=== PATIENT | male | born 1940 | race Caucasian/White ===

== ENCOUNTER → 2016-11-25 | Outpatient (CLI) | payer BC ==
[~2016-11-25] MED LIST: ASPI81TA28 PO; CHOL2000 PO; COEN1CAP46; FINA5TAB PO; GLUC10007 PO; IBUP-1449 PO; MULT-884; OMEG10007 PO; PRAV20TA PO
[2016-11-25 17:14] LABS: BASO % 0.2 %; BASO ABS # 0.01 K/uL (0-0.2); COMPLETE YES; EOS % 2.1 %; HEMATOCRIT 40.7 % (42-52); LYMPH % 29.8 %; LYMPH ABS # 1.45 K/uL (1.2-3.4); MEAN CELL VOLUME 90.8 fL (80-100); MEAN CORPUSCULAR HEMOGLOBIN 32.1 pg (25-34); MEAN CORPUSCULAR HGB CONC 35.4 g/dl (32-36); MEAN PLATELET VOLUME 10.2 fL (7.4-10.4); MONO % 9.7 %; NEUT % 58.2 %; PLATELET COUNT 128 K/uL (130-400); RED BLOOD COUNT 4.48 M/uL (4.7-6.1); WHITE BLOOD COUNT 4.87 K/uL (4.8-10.8)
--- NOTE | 2016-12-02 10:47 | CODING QUERY MEDICAL NECESSITY ---
CQSUPPORTING DIAGNOSIS NEEDED A supporting diagnosis is required for the test/procedure performed on this patient in order for us to be reimbursed by the patient's insurance. Please provide a supporting diagnosis for the following test/procedure listed below next to the test name along with your signature. *If there is no additional diagnosis for this patient that would support the following test/procedure please document that below next to the test/procedure. Test(s)/Procedure(s) that require a supporting diagnosis: DOS 11/25/16 PROSTATE SPECIFIC TEST Provider Signature: Date: Thank you Manisha Zavala [facility] [employer] Once completed, please kindly fax back to [phone] For questions please call [phone]
== END | disposition home or self-care (01) ==
LOC: C.LABBC 15:02
PROVIDERS: ATTEND Internal Medicine Pulmonary Disease
DX: R53.83 Other fatigue (principal); N40.0 Benign prostatic hyperplasia without lower urinary tract symptoms

== ENCOUNTER → 2017-02-19 | Outpatient (CLI) | payer BC ==
[2017-02-19 11:09] LABS: BASO % 0.3 %; BASO ABS # 0.01 K/uL (0-0.2); COMPLETE YES; EOS % 6.1 %; HEMATOCRIT 43.9 % (42-52); LYMPH % 34.5 %; LYMPH ABS # 1.29 K/uL (1.2-3.4); MEAN CELL VOLUME 92.4 fL (80-100); MEAN CORPUSCULAR HEMOGLOBIN 32.4 pg (25-34); MEAN CORPUSCULAR HGB CONC 35.1 g/dl (32-36); MONO % 10.4 %; NEUT % 48.7 %; PLATELET COUNT 125 K/uL (130-400); RED BLOOD COUNT 4.75 M/uL (4.7-6.1); WHITE BLOOD COUNT 3.74 K/uL (4.8-10.8)
[2017-02-19 11:18] LABS: ALT/SGPT 44 U/L (12-78); BLOOD UREA NITROGEN 15 mg/dl (7-18); BUN/CREATININE RATIO 16.3 (10-20); CALCIUM 9.2 mg/dl (8.5-10.1); CARBON DIOXIDE 27 mmol/L (21-32); CHLORIDE 108 mmol/L (98-107); CHOLESTEROL 175 mg/dl (0-200); CREATININE 0.92 mg/dl (0.60-1.40); GLUCOSE 89 mg/dl (70-99); POTASSIUM 4.2 mmol/L (3.5-5.1); SODIUM 141 mmol/L (136-145)
[2017-02-19 11:29] LABS: ALB/GLOB RATIO 1.2 (0.9-2); ALKALINE PHOSPHATASE 51 U/L (45-117); AST/SGOT 36 U/L (15-37); CHOLESTEROL/HDL RATIO 3.6; HDL CHOLESTEROL 49 mg/dl; LDL CHOLESTEROL CALCULATED 114 mg/dl; TRIGLYCERIDES 62 mg/dl (0-150); VERY LOW DENSITY LIPOPROT CALC 12 mg/dl
[2017-02-19 12:39] LABS: ESTIMATED AVERAGE GLUCOSE 105 mg/dl; HA1C FLAG Normal (Normal)
--- NOTE | 2017-02-24 13:10 | CODING QUERY MEDICAL NECESSITY ---
SUPPORTING DIAGNOSIS NEEDED Dr. Mae, A supporting diagnosis is required for the test/procedure performed on this patient in order for us to be reimbursed by the patient's insurance. Please provide a supporting diagnosis for the following test/procedure listed below next to the test name along with your signature. *If there is no additional diagnosis for this patient that would support the following test/procedure please document that below next to the test/procedure. Test(s)/Procedure(s) that require a supporting diagnosis: * ([id number]) B12 VITAMIN LEVEL DIAGNOSIS: * [id number] GLYCATED HEMOGLOBIN DIAGNOSIS: DATE OF SERVICE: 02/19/17 Provider Signature: Date: Thank you [facility] Information [facility] Once completed, please kindly fax back to [phone] For questions please call [phone]
== END | disposition home or self-care (01) ==
LOC: C.LABBC 07:25
PROVIDERS: ATTEND Internal Medicine Pulmonary Disease
DX: E78.5 Hyperlipidemia, unspecified (principal); N40.0 Benign prostatic hyperplasia without lower urinary tract symptoms; R53.83 Other fatigue; D69.6 Thrombocytopenia, unspecified; R73.9 Hyperglycemia, unspecified

== ENCOUNTER → 2017-04-13 | Outpatient (CLI) | payer BC ==
--- NOTE | 2017-04-13 11:57 | DIAGNOSTIC IMAGING REPORT ---
ABDOMINAL ULTRASOUND COMPLETE HISTORY: Renal cyst.. COMPARISON: None. FINDINGS: Pancreas: Obscured by overlying bowel gas. Liver: There are a few hepatic cysts with the largest measuring 1.2 cm. Gallbladder: No gallbladder wall thickening. No gallstones. CBD: 5 mm. Kidneys: No hydronephrosis. No left renal cysts. An 8 mm right lower pole cyst. Spleen: Normal in size. Aorta: Normal in caliber. IVC: Patent. IMPRESSION: 1. A few small hepatic cysts. 2. An 8 mm right renal lower pole cyst. 3. Normal gallbladder. Electronically signed by: Bj Latham M.D. 04/13/2017 11:55 AM Dictated Date/Time: 04/13/2017 11:53 AM
== END | disposition home or self-care (01) ==
LOC: C.ULTR 10:40
PROVIDERS: ATTEND Internal Medicine Pulmonary Disease
DX: N28.1 Cyst of kidney, acquired (principal)

== ENCOUNTER → 2017-04-16 | Outpatient (CLI) | payer BC ==
[2017-04-16 14:15] LABS: BLOOD UREA NITROGEN 13 mg/dl (7-18); CREATININE 0.94 mg/dl (0.60-1.40)
== END | disposition home or self-care (01) ==
LOC: C.LABBC 10:05
PROVIDERS: ATTEND Physician Assistant
DX: M54.16 Radiculopathy, lumbar region (principal)

== ENCOUNTER → 2017-04-21 | Outpatient (CLI) | payer BC ==
[~2017-04-21] MED LIST changes: +GADAVIST IV PRN
--- NOTE | 2017-04-21 17:13 | DIAGNOSTIC IMAGING REPORT ---
LUMBAR SPINE COMBINATION HISTORY: Pain. Neuropathy. LUMBAR RADICULOPATHY TECHNIQUE: Multiplanar multisequence MRI of the lumbar spine was performed both before and after the intravenous administration of contrast. COMPARISON: 12/14/2015 FINDINGS: For the purpose of the report the L5-S1 disc space will be located on axial image 27 of 30. Interval posterior laminectomy and fusion from L3 through L5. Signal characteristics of the vertebral bodies remain unremarkable. Considerable degenerative disc changes noted throughout and are stable from the prior exam. No evidence for a compression deformity. L1-L2: Minimal broad-based disc bulge unchanged in the prior exam. L2-L3: Mild multifactorial narrowing of the spinal canal and right neuroforamina. Findings a slightly accentuated by minimal grade 1 anterolisthesis of L2 on L3. These findings are unchanged from the prior exam. Broad-based bulging disc again unchanged in the prior exam. L3-L4: Interval posterior laminectomy and fusion. Improved diameter of the spinal canal. Diminished bulging disc component. L4-L5: Persistent mild central disc herniation. Moderate impact anterior thecal sac. Improved diameter of the spinal canal posterior laminectomy and fusion. Mild persistent osteophytic narrowing right neuroforamina unchanged in the prior study. L5-S1: Persistent left central bulging disc. Moderate narrowing left neuroforamina unchanged. Improved diameter of the spinal canal posterior laminectomy and fusion. Small fluid pocket posterior to L3 throughout 5 and the associated spinal canal. Suggestive of a postprocedural seroma and measures 4.2 x 1.5 cm. IMPRESSION: 1. Interval laminectomy and fusion from L3 through L5. 2. Persistent bulging disc with moderate narrowing of several neural foramina stable to slightly improved overall from the prior exam. 3. Postprocedural seroma posterior to the thecal sac from L3 through L5 showing no significant impact upon admitting neural element. The above report was generated using voice recognition software. It may contain grammatical, syntax or spelling errors. Electronically signed by: Holden Wallace M.D. 04/21/2017 5:11 PM Dictated Date/Time: 04/21/2017 5:00 PM
== END | disposition home or self-care (01) ==
LOC: C.MRI 15:33
PROVIDERS: ATTEND Orthopaedic Surgery
DX: M51.16 Intervertebral disc disorders with radiculopathy, lumbar region (principal); Z98.1 Arthrodesis status; M99.73 Connective tissue and disc stenosis of intervertebral foramina of lumbar region

== ENCOUNTER → 2017-09-21 | Outpatient (CLI) | payer BC ==
[~2017-09-21] MED LIST changes: -GADAVIST IV PRN
== END | disposition home or self-care (01) ==
LOC: C.LABBC 14:17
PROVIDERS: ATTEND Internal Medicine Pulmonary Disease
DX: N40.1 Benign prostatic hyperplasia with lower urinary tract symptoms (principal)

== ENCOUNTER → 2017-10-20 | Outpatient (CLI) | payer BC ==
--- NOTE | 2017-10-20 10:38 | DIAGNOSTIC IMAGING REPORT ---
TWO VIEW CHEST CLINICAL HISTORY: Cough. FINDINGS: PA and lateral chest radiographs are compared to study dated 01/09/2016. The cardiomediastinal silhouette is unremarkable. There is atherosclerotic calcification of the thoracic aorta. Emphysematous change and chronic interstitial thickening are similar to previous. No airspace consolidation or pleural effusion is identified. Apical scarring is observed. There is no pneumothorax. The skeletal structures are osteopenic. The bony thorax appears intact. IMPRESSION: Emphysema with no acute cardiopulmonary abnormality. Electronically signed by: Eliseo Mcneill M.D. 10/20/2017 10:36 AM Dictated Date/Time: 10/20/2017 10:35 AM
== END | disposition home or self-care (01) ==
LOC: C.RAD1850 09:56
PROVIDERS: ATTEND Physician Assistant Medical
DX: J43.9 Emphysema, unspecified (principal)

== ENCOUNTER 2024-11-25 08:49 | Inpatient (IN) ==
--- NOTE | 2024-11-25 07:39 | History & Physical Bridge Note ---
Date of Service November 25, 2024 History & Physical Bridge Note I have examined the patient, reviewed the History & Physical and in the interval since the performance of the History & Physical I have noted the following changes of clinical significance: no changes noted
--- NOTE | 2024-11-25 07:39 | Pre Anesthesia Assessment ---
Date of Service November 25, 2024 Pre Sedation Assessment Cardiovascular + regular rate Respiratory + respiratory effort normal Pre-Sedation Airway Assessment Smoking Status: Never smoker Hx Sleep Apnea: No Hx Difficult Intubation: No Short, Thick Neck: No Thyromental Distance: < 3.5 Finger Breadths Oral Cavity: + Dental Abnormalities Mallampati Class: III ASA: ASA3 Procedure Planning Contraindications for Sedation: none Current Medications Reviewed: Yes Notes The planned sedation has been discussed with the patient. Informed Consent was obtained. I have identified the patient, determined the appropriateness of sedation and have assessed the patient immediately prior to the procedure. All medicine(s) and interventions are by my order.
--- NOTE | 2024-11-25 07:40 | Post Anesthesia Assessment ---
Date of Service November 25, 2024 Post Sedation Assessment Vital Signs Pulse Resp Pulse Ox O2 Del Method 11/25/24 09:05 63 14 98 Room Air Recovery Score Activity: Moves 4 extremities Respiration: Deep Breath/Cough Circulation: +/-20% PreAnes Value Consciousness: Fully Awake Oxygen Saturation: O2 needed for >90% Discharge Sedation Level of Care: Fast Track Phase II Post Sedation Plan On clinical assessment, the patient appears to have tolerated the sedation without complications. Patient is recovering as anticipated. Patient will continue to be monitored by nursing and may be discharged when sedation discharge criteria are met per below protocol. Upon Completions of procedure up to 15 minutes continue every 5 minute vital signs and the P.A.R. score; then discharge to a Phase I or Fast Track to Phase II per the following guidelines: * Discharge Patient to appropriate Phase II area if PAR is 8 or greater or return to pre- procedure baseline. The post - procedure orders will be as directed. * If PAR score is less than 8 or not return to pre-procedure baseline then patient will follow Phase I monitoring till PAR is reached for Phase II. The Phase I may be done in procedure room or may call to secure a Phase I area. * If naloxone or flumazenil are used for reversal, hold in Phase I for continued monitoring from when last reversal dose was given for a minimum of 60 minutes or longer pending the nurse and/or physician discretion of patient condition before discharge to Phase II. Please call the Sedation Physician to re-evaluate and complete post-note for discharge to Phase II area. Do NOT discharge from procedure sedation or Phase 1 until post- sedation evaluation note is complete by procedure /sedation MD Sedation Discharge Instructions to be given to the patient at discharge to home.
[2024-11-25] MEDS: LIDOCAINE 1% LOCAL 20 ML VIAL ONE ×2 (12:00→18:08)
[2024-11-25] MEDS: fentaNYL citrate PF 100 MCG/2 ML VIAL ONE ×3 (12:00→18:10)
[2024-11-25] MEDS: HEPARIN (PORCINE) 1000 UNIT/ML 10 ML (CATH LAB USE ONLY) ONE ×3 (12:00→18:11)
[2024-11-25] MEDS: NITROGLYCERIN/D5W 100MCG/ML 20ML SYR ONE ×2 (12:01→18:13)
[2024-11-25] MEDS: niCARdipine HCL INJ 2.5 MG/ML 10 ML AMP ONE (12:02)
[2024-11-25] MEDS: OPTIRAY 350 ONE ×2 (13:00→18:11)
[2024-11-25] MEDS: diphenhydrAMINE 50 MG/ML VIAL ONE (13:00)
[2024-11-25] MEDS: MIDAZOLAM HCL 5 MG/ML 1 ML VIAL ONE (13:02)
--- NOTE | 2024-11-25 13:46 | Endovascular Procedure Note ---
[facility] Endovascular Procedure Rpt Pre & Post Diagnosis Peripheral artery disease I identified the patient and participated in the time-out.: No Procedure Operation Date: 11/25/24 10:00 Actual Procedures p Angio Extremity Unilateral - Saw Sung MD Surgeon Saw Sung MD Manager [employer] Ashu Garza Estimated Blood Loss 35 Findings See Below Left lower extremity-- -MORTGAGE ANALYST, profunda widely patent -SFA--calcified distal 40% stenosis. -Popliteal--heavily calcified, diffuse disease up to 50% mid segment -BLANKA -- heavily calcified, occluded in mid segment. Minimal DPA reconstitution in foot. TPTdiffuse 80-90% disease -ANCHOR TACKER -- heavily calcified, 90% ostial disease just after bifurcation, diffuse 40-50% proximal disease. Distal vessel widely patent to the foot. -Peroneal -- occluded in proximal segment, reconstitutes in the midsegment. Gives off collaterals which had in direction of anterolateral lower leg above the ankle (near wound bed). DPAvery short area of reconstitution in hindfoot just below the ankle from collaterals from lateral plantar. DPA occluded and does not extend into the midfoot. Anesthesia Type RN Sedation Radiation Exposure (mGv) Radiation (mGy): 87 Contrast Contrast: 75 Complications none Disposition Disposition: [employer] Description of Procedure Angtegrade Left MORTGAGE ANALYST access with micropuncture needle under ultrasound guidance 5 Fr short sheath placed and initial angiography of SFA through sheath Over 0.35 glide advantage wire quick cross catheter navigated into distal popliteal. Below the knee angiography via quick cross catheter. Pullback of quick cross catheter revealed no significant gradient across popliteal stenosis. 6 Fr 45 cm destination sheath placed from left MORTGAGE ANALYST down to popliteal 0.14 command wire navigated across TPT/ANCHOR TACKER disease into distal ANCHOR TACKER IVUS catheter placed to ANCHOR TACKER. Pullback revealed diffuse early calcified disease in proximal ANCHOR TACKER/TPT. Concentric calcified disease noted in popliteal. Second command wire navigated across peroneal occlusion with the aid of angled 0.18 Navicross catheter, intravascular position confirmed via injection through catheter. Proximal to mid peroneal dilated with 2.0 balloon TPT/proximal ANCHOR TACKER dilated with 2.0 balloon Peroneal dilated with shockwave intravascular lithotripsy balloon (2.5, 160 pulses) TPT into ANCHOR TACKER further dilated with intravascular lithotripsy (shockwave, 3.0, 160 pulses). Left popliteal disease and proximal ANCHOR TACKER disease crossed with 0.14 command wire and OTW balloon. Angioplasty of TPT/proximal ANCHOR TACKER with 2.5 balloon. Proximal ANCHOR TACKER resistant to higher atmospheres Shockwave lithotripsy balloon used to treat resistant proximal ANCHOR TACKER segment (2.5, 160 pulses). Popliteal segment treated with shockwave lithotripsy 4.0 balloon (120 pulses). Popliteal further treated with Lutonix drug-eluting balloon (5.0 x 150 mm). IA vasodilators administered Repeat angiography revealed well-expanded peroneal artery Appeared to have nonflow limiting dissection in TPT and proximal ANCHOR TACKER Proximal ANCHOR TACKER dissection treated with 2.75 x 33 mm Xience CHAR, postdilated with stent balloon TPT dissection treated with 3.0 x 33 mm Xience CHAR, postdilated with stent balloon Post procedure good angiographic result, stents well-expanded with brisk two- vessel runoff to the foot and improved collateral flow from peroneal towards wound bed. Contrast used: 75 Moderate sedation: [id number] Access closure: LT MORTGAGE ANALYST mynx Summary: 1. Left lower extremity -- 40% distal SFA; 50% heavily calcified diffuse popliteal disease (no significant pullback gradient across popliteal); 85% TPT, 90% proximal ANCHOR TACKER stenosis. Occluded proximal peroneal reconstitutes to the ankle. BLANKA occluded without significant distal reconstitution. 2.. Successful left TPT/proximal ANCHOR TACKER angioplasty with intravascular lithotripsy (shockwave 3.0 balloon) and placement of 2 nonoverlapping drug-eluting stents (TPT 3.0 x 33, ANCHOR TACKER 2.75 x 33 mm Xience). 4. Successful angioplasty of LT peroneal occlusion with intravascular lithotripsy (Shockwave 2.5 balloon). Recommendations: Continue DAPT with ASA/Clopidogrel for for at least 3-months Consider addition of PAD dose Xarelto after 1 month Follow-up non-invasive vascular testing in 2 weeks. I attest to the content of the Intraoperative Record and any orders documented therein. Any exceptions are noted below. Vascular Charges Angiography/Venography Procedure 1: Angiography/Venography charges: 50226 Initial 3rd order or selective abd, pelvic, or LE branch Lower Extremity Interventions Procedure 1: Lower Extremity Intervention charges: 06157 Stent plcmt, tibial, peroneal art, UL, initial vessel Procedure 2: Lower Extremity Intervention charges: 64882 Stent Placement, tib/kenia artery, UL, each add'l vessel Additional Services Procedure 1: Additional Services Charges: 82795 Intravascular ultrasound; initial noncoronary vessel Procedure 2: Additional Services Charges: 48294 Ultrasound guidance - vascular access Procedure 3: Additional Services Charges: 16088 Moderate sedation initial 15 min Procedure 4: Additional Services Charges: 52713 Moderate sedation, each additional 15 min
[2024-11-25] MEDS: CLOPIDOGREL BISULFATE 300 MG TAB ONE ×2 (13:53→13:54)
--- NOTE | 2024-11-25 16:55 | Pre Anesthesia Assessment ---
Date of Service November 25, 2024 Pre Sedation Assessment Vital Signs Pulse Resp BP Pulse Ox O2 Del Method 11/25/24 15:30 61 14 96 Room Air 11/25/24 15:15 61 14 96 Room Air 11/25/24 14:30 61 14 169/95 H 96 Room Air 11/25/24 14:15 61 14 169/95 H 96 Room Air 11/25/24 14:00 59 L 14 147/91 H 96 Room Air 11/25/24 13:45 64 14 147/91 H 95 Room Air 11/25/24 13:30 63 14 153/103 H 88 L Room Air 11/25/24 09:05 63 14 98 Room Air Cardiovascular + tachycardic Respiratory + respiratory effort normal Pre-Sedation Airway Assessment Smoking Status: Never smoker Hx Sleep Apnea: No Hx Difficult Intubation: No Short, Thick Neck: No Thyromental Distance: > or= 3.5 Finger Breadths Oral Cavity: + WNL Mallampati Class: III ASA: ASA3 NPO Status Date of Last Intake of Fluids: 11/24/24 Time of Last Intake of Fluids: 19:00 Date of Last Intake of Solid Food: 11/24/24 Time of Last Intake of Solid Foods: 19:00 Procedure Planning Contraindications for Sedation: none Current Medications Reviewed: Yes Notes The planned sedation has been discussed with the patient. Informed Consent was obtained. I have identified the patient, determined the appropriateness of sedation and have assessed the patient immediately prior to the procedure. All medicine(s) and interventions are by my order.
--- NOTE | 2024-11-25 17:48 | Orthopedic Consultation ---
Date of Consultation November 25, 2024 Assessment & Plan (1) Compartment syndrome of left lower extremity: (2) PAD (peripheral artery disease): (3) Open wounds involving multiple regions of lower extremity: (4) CAD (coronary artery disease): Gonzalez Fong is an 84-year-old gentleman who presented to the hospital today for angiography with attempted stenting of posterior tibial artery for chronic nonhealing wounds. This was done by Dr. Sung. Apparently during the procedure, injury to the anterior tibial artery occurred and when the patient awoke in the recovery unit, he was found to have concerns for compartment syndrome. I was called this afternoon at approximately 1645 for evaluation. At that time, I recommended calling vascular surgery as the patient clearly had a proximal arterial lesion bleeding into the compartment causing his symptoms. I also immediately rushed to the hospital to evaluate the patient. Upon arriving in the hospital, the patient was already in the endovascular suite so I was unable to appropriately obtain a history from him. Per Dr. Sung, he did call and speak with the vascular attending on-call who recommended no vascular intervention, instead recommended coiling the anterior tibial artery and calling orthopedics to release his compartments. I did evaluate the patient briefly prior to the coiling procedure and on evaluation, the patient had very tense anterior and lateral compartments with soft posterior compartments on palpation. I did use a Kaden needle to evaluate his pressures as well. His preoperative diastolic blood pressure was 95 mmHg. Anterior compartment: 94 Lateral compartment: 90 Superficial posterior: 20 Deep posterior:15 Based on patient's clinical evaluation, his history including significant pain in his lower extremity, I do think that his diagnosis is consistent with compartment syndrome. I did call and discussed this with the patient's and I also obtained a phone consent from her for the anticipated procedure. Operative plan will be for fasciotomy of the anterior and lateral compartments followed by evaluation of the posterior compartments with possible 4 compartment fasciotomy if indicated. She is I did explain in great detail the risk of the procedure which include but are not limited to loss of life/limb, DVT, incomplete relief of pain, need for additional surgery, neurovascular damage, infection, wound healing complications. I did express to them that due to his significant lower extremity vascular disease, he is at a very high risk for amputation in the future. She understood this and all of her questions were answered to her satisfaction. We will proceed to the OR emergently at this point for fasciotomy with placement of wound VAC of the left lower extremity. History of Present Illness Reason for Consultation: Left lower extremity swelling Attending Physician: Saw Sung MD History of Present Illness Ajit Valdez is an 84-year-old gentleman who presented to the hospital today for angioplasty of his lower extremity for nonhealing wounds. He is a patient of Dr. Sung's. Past medical history includes dyslipidemia, coronary artery calcifications on CT scan (stress echo negative 03/2022), GERD, BPH. Also with a history of lumbar stenosis post prior back surgeries in 2015, 2020 most recently at [facility]. Previously seen by vascular medicine 02/2024 in the setting of longstanding claudication. Underwent endovascular invention 03/14/2024 with IVL and NOREEN to left popliteal as well as IVL to LT TPT/TRUCK WASHER. Recent arterial duplex 09/2024right YESSY 0.72, TBI 0.5 to; left YESSY 0.6, TBI 0.44 (56). Duplex showed occluded left BLANKA and patent popliteal/TRUCK WASHER arteries. Patient has seen wound clinic since 09/20/2024 with 6 weeks of left lower leg/ankle ulcers without preceding trauma. Left lateral ankle has essentially healed. Ulcer over left lower medial hernandez healing slow/plateaued with standard wound care, antibiotics. Recent vascular studies: Arterial duplex 02/2024: Right YESSY 1.22, TBI 0.7. Left YESSY 0.78, TBI 0.52. >75 to 99% left proximal to mid popliteal stenosis (PSV 658), 100% left distal BLANKA. Diminished peroneal/TRUCK WASHER waveforms. 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 Denies tobacco use Patient came into the electrophysiology suite today for angiography with attempted stenting of his posterior tibial and peroneal vessels for chronic lower extremity nonhealing wounds. The patient's procedure occurred earlier this afternoon sometime between noon and 1. Patient recovered in PACU thereafter and was complaining of significant pain in his lower extremity. Upon evaluation he did have significant swelling. I was called by Dr. Sung at approximately 445 with concerns for compartment syndrome. Immediately rushed to the hospital for evaluation. I also recommended calling vascular surgery due to the proximal nature of this injury. Dr. Sung did speak with the vascular on- call attending who noted no repair was indicated and to call orthopedics for compartment releases. On my initial evaluation, the patient is lying on the bed in the electrophysiology suite undergoing coiling of the anterior tibial artery. He is unable to participate in the history as he is currently under anesthetic. Allergies Allergy/AdvReac Type Severity Reaction Status Date / Time No Known Allergies Allergy Verified 11/25/24 09:16 Home Medications Medication Instructions Recorded Confirmed Type aspirin 81 mg tablet,delayed 81 mg PO QAM 03/17/19 11/25/24 History release (Adult Aspirin Regimen) cholecalciferol (vitamin D3) 50 2,000 units PO QAM 03/17/19 11/25/24 History mcg (2,000 unit) capsule coenzyme Q10 100 mg capsule 100 mg PO QAM 03/18/19 11/25/24 History glucosamine-chondroitin 250 mg-200 2 tab PO QAM 03/18/19 11/25/24 History mg tablet (Osteo Bi-Flex) omega-3 fatty acids 1,000 mg 1,000 mg PO TID 03/18/19 11/25/24 History capsule (Fish Oil Concentrate) multivitamin 1 tab PO QAM 07/11/20 11/25/24 History vitamin B complex (B 1 tab PO QAM 07/11/20 11/25/24 History Complex-Vitamin B12 tablet) Cholest Md 2 tab PO QPM 04/29/23 11/25/24 History finasteride 5 mg tablet 5 mg PO QPM #90 tabs 12/31/23 11/25/24 Rx atorvastatin 40 mg tablet (Lipitor) 40 mg PO QPM #90 tabs 04/21/24 11/25/24 Rx niacin 1 tab PO .3 times weekly 08/22/24 11/25/24 History acetaminophen 500 mg tablet 1,000 mg PO BID 09/20/24 11/25/24 History (Tylenol Extra Strength) Patient History Medical History History of COVID-2021, home test, not hopsitalized; "flu symptoms">resolved. Hepatic cyst Under observation Kyphosis Hx of Clostridium difficile infection Resolved Renal cyst Under observation Lumbar spinal stenosis BPH (benign prostatic hyperplasia) GERD (gastroesophageal reflux disease) Occasionally Hyperlipidemia Well controlled w/meds TMJ syndrome Hx; resolved Surgical History History of cystoscopy with urolift 04/01/22 Dr. 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 Family History Father Heart disease Grandmother Diabetes Mother Diabetes Brother Prostate cancer Other No family history of adverse response to anesthesia Social History Smoking Status: Never smoker Second Hand Exposure: No; Do You Dip or Chew Tobacco: No; Hx Alcohol Use: No Hx Substance Use: No Preferred Language: [place]er Communication Ability: Effective Pumping Station Supervisor Required: No Beliefs That Will Affect Care: None marital status: Current Living Situation: Spouse current occupational status: retired Feels Safe at Home: Yes Assistive Devices: None Review of Systems Review of Systems: Other HPI is unobtainable secondary to patient undergoing coiling at the time of my initial evaluation. Physical Exam Physical Exam: Prior to going into the endovascular suite, the patient's diastolic blood pressure was 95 mmHg. A Kaden needle was used to evaluate his compartment pressures and a are the following: Anterior compartment: 94 Lateral compartment: 90 Superficial posterior: 20 Deep posterior:15 on palpation his anterior and lateral compartments were quite tense, but his posterior compartments seemed quite soft and easily compressible Results & Data Vital Signs (Past 12 Hours) Vital Signs Pulse Resp BP Pulse Ox O2 Del Method 11/25/24 15:30 61 14 96 Room Air 11/25/24 15:15 61 14 96 Room Air 11/25/24 14:30 61 14 169/95 H 96 Room Air 11/25/24 14:15 61 14 169/95 H 96 Room Air 11/25/24 14:00 59 L 14 147/91 H 96 Room Air 11/25/24 13:45 64 14 147/91 H 95 Room Air 11/25/24 13:30 63 14 153/103 H 88 L Room Air 11/25/24 09:05 63 14 98 Room Air Diagnostic Findings Angiography results 11/25/24 "Description of Procedure Angtegrade Left HAND GLUER AND SLICER access with micropuncture needle under ultrasound guidance 6 Fr 20 cm sheath placed to mid SFA Left popliteal disease and proximal TRUCK WASHER disease crossed with 0.14 command wire a nd OTW balloon. Angioplasty of TPT/proximal TRUCK WASHER with 2.5 balloon. Proximal TRUCK WASHER resistant to higher atmospheres Shockwave lithotripsy balloon used to treat resistant proximal TRUCK WASHER segment (2.5, 160 pulses). Popliteal segment treated with shockwave lithotripsy 4.0 balloon (120 pulses). Popliteal further treated with Lutonix drug-eluting balloon (5.0 x 150 mm). Post procedure good angiographic result, no evidence of dissection with good single vessel run-off via TRUCK WASHER Contrast used: 60 Moderate sedation: [phone] Access closure: RT HAND GLUER AND SLICER mynx; LT HAND GLUER AND SLICER mynx Summary: 1. Left lower extremity -- 40% distal SFA; 90% heavily calcified diffuse popliteal disease; 95% TPT/proximal TRUCK WASHER stenosis. Occluded proximal peroneal reconstitutes to the ankle. BLANKA occluded. 3. Successful angioplasty of LT popliteal artery with intravascular lithotripsy and drug-eluting balloon (5.0 x 150 Lutonix) via LT HAND GLUER AND SLICER antegrade approach. 4. Successful angioplasty of LT TPT/Proximal TRUCK WASHER with intravascular lithotripsy (Shockwave 2.5 balloon). "
[2024-11-25] MEDS ORDERED: ONDANSETRON INJ 2 MG/ML 2 ML VIAL ONE (18:11)
[2024-11-25] MEDS ORDERED: PROPOFOL IV EMULSION 10 MG/ML 20 ML VIAL IV ONE (18:11)
[2024-11-25] MEDS ORDERED: SUCCINYLCHOLINE CHLORIDE 20 MG/ML 10 ML VIAL IV ONE (18:11)
[2024-11-25] MEDS ORDERED: LIDOCAINE 2% 2 ML VIAL/AMP(20MG/ML) INFIL ONE ×3 (18:11→18:16)
[2024-11-25] MEDS ORDERED: ROCURONIUM BROMIDE 10 MG/ML 5 ML VIAL IV ONE (18:11)
[2024-11-25] MEDS: MIDAZOLAM HCL 1 MG/ML 2ML VIAL ONE ×2 (18:12→18:13)
[2024-11-25] MEDS: niCARdipine 2,000 MCG/20 ML SYR ONE (18:12)
--- NOTE | 2024-11-25 18:15 | Post Anesthesia Assessment ---
Date of Service November 25, 2024 Post Sedation Assessment Vital Signs Pulse Resp BP Pulse Ox O2 Del Method 11/25/24 15:30 61 14 96 Room Air 11/25/24 15:15 61 14 96 Room Air 11/25/24 14:30 61 14 169/95 H 96 Room Air 11/25/24 14:15 61 14 169/95 H 96 Room Air 11/25/24 14:00 59 L 14 147/91 H 96 Room Air 11/25/24 13:45 64 14 147/91 H 95 Room Air 11/25/24 13:30 63 14 153/103 H 88 L Room Air 11/25/24 09:05 63 14 98 Room Air Recovery Score Activity: Moves 4 extremities Respiration: Deep Breath/Cough Circulation: +/-20% PreAnes Value Consciousness: Fully Awake Oxygen Saturation: > 92% On Room Air Post Anesthesia Score: 10 Discharge Sedation Level of Care: Fast Track Phase II Post Sedation Plan On clinical assessment, the patient appears to have tolerated the sedation without complications. Patient is recovering as anticipated. Patient will continue to be monitored by nursing and may be discharged when sedation discharge criteria are met per below protocol. Upon Completions of procedure up to 15 minutes continue every 5 minute vital signs and the P.A.R. score; then discharge to a Phase I or Fast Track to Phase II per the following guidelines: * Discharge Patient to appropriate Phase II area if PAR is 8 or greater or return to pre- procedure baseline. The post - procedure orders will be as directed. * If PAR score is less than 8 or not return to pre-procedure baseline then patient will follow Phase I monitoring till PAR is reached for Phase II. The Phase I may be done in procedure room or may call to secure a Phase I area. * If naloxone or flumazenil are used for reversal, hold in Phase I for continued monitoring from when last reversal dose was given for a minimum of 60 minutes or longer pending the nurse and/or physician discretion of patient condition before discharge to Phase II. Please call the Sedation Physician to re-evaluate and complete post-note for discharge to Phase II area. Do NOT discharge from procedure sedation or Phase 1 until post- sedation evaluation note is complete by procedure /sedation MD Sedation Discharge Instructions to be given to the patient at discharge to home.
--- NOTE | 2024-11-25 18:39 | Anesthesiology Consultation ---
Date of Service November 25, 2024 Assessment & Plan Chart Review Chart Review: Acceptable Risk for Surgery and Patient NOT seen in Pre Admission Testing Consults Requested medical ASA [id number] Proposed Anesthesia Anesthesia Type: General Risk / Benefits Reviewed With: PT / POA / Parent / Guardian, Accepts Plan and Informed Consent Obtained Additional Comments: Discussed with and consented patient's given that patient was recently sedated for procedures x2. For most recent procedure, had 3 mg versed and 100 mcg fentanyl. History Surgery Operation Date: 11/25/24 10:00 Proposed Procedures p Left Lower Extremity Angiogram - Saw Sung MD Operation Date: 11/25/24 16:00 Proposed Procedures p Cardiac Cath Procedure - Saw Sung MD Operation Date: 11/25/24 19:00 Proposed Procedures p Fasciotomy(Left) - Gregorio Vo DO Height/Weight Height: 6 ft 4 in Weight: 85 kg Allergies Allergy/AdvReac Type Severity Reaction Status Date / Time No Known Allergies Allergy Verified 11/25/24 09:16 Medications Home Medications Medication Instructions Recorded Confirmed Last Taken aspirin 81 mg tablet,delayed 81 mg PO QAM 03/17/19 11/25/24 11/25/24 release (Adult Aspirin Regimen) cholecalciferol (vitamin D3) 50 2,000 units PO QAM 03/17/19 11/25/24 05/06/23 mcg (2,000 unit) capsule coenzyme Q10 100 mg capsule 100 mg PO QAM 03/18/19 11/25/24 05/05/23 glucosamine-chondroitin 250 mg-200 2 tab PO QAM 03/18/19 11/25/24 05/05/23 mg tablet (Osteo Bi-Flex) omega-3 fatty acids 1,000 mg 1,000 mg PO TID 03/18/19 11/25/24 03/31/22 08:00 capsule (Fish Oil Concentrate) multivitamin 1 tab PO QAM 07/11/20 11/25/24 03/31/22 08:00 vitamin B complex (B 1 tab PO QAM 07/11/20 11/25/24 03/31/22 08:00 Complex-Vitamin B12 tablet) Cholest Md 2 tab PO QPM 04/29/23 11/25/24 05/05/23 finasteride 5 mg tablet 5 mg PO QPM #90 tabs 12/31/23 11/25/24 Unknown atorvastatin 40 mg tablet (Lipitor) 40 mg PO QPM #90 tabs 04/21/24 11/25/24 Unknown niacin 1 tab PO .3 times weekly 08/22/24 11/25/24 Unknown acetaminophen 500 mg tablet 1,000 mg PO BID 09/20/24 11/25/24 Unknown (Tylenol Extra Strength) NPO Date Last Intake of Fluids: 11/24/24 Date Last Intake of Solids: 11/24/24 Past Medical History Medical History History of COVID-19 2021, home test, not hopsitalized; "flu symptoms">resolved. Hepatic cyst Under observation Kyphosis Hx of Clostridium difficile infection Resolved Renal cyst Under observation Lumbar spinal stenosis BPH (benign prostatic hyperplasia) GERD (gastroesophageal reflux disease) Occasionally Hyperlipidemia Well controlled w/meds TMJ syndrome Hx; resolved Exercise / Class Metabolic Activity III < 4 Walking/Shop/Light housework Past Family History Family History Father Heart disease Grandmother Diabetes Mother Diabetes Brother Prostate cancer Other No family history of adverse response to anesthesia Past Surgical History Surgical History History of cystoscopy with urolift 04/01/22 Dr. 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 Past Anesthesia History No Hx of Anesthesia Complications and No Family Hx of Anesthesia Complications History of PONV No Hx of PONV and No Hx of Motion Sickness Social History Smoking Status: Never smoker Do You Dip or Chew Tobacco: No Hx Alcohol Use: No Alcohol type: beer and wine alcohol intake frequency: holidays/special occasions only Hx Substance Use: No substance use type: does not use Review of Systems ROS Unobtainable: All systems reviewed & are unremarkable except as noted in HPI & below Physical Exam Vital Signs Last Vital Signs Pulse 61 11/25/24 15:30 Resp 14 11/25/24 15:30 BP 169/95 H 11/25/24 14:30 Pulse Ox 96 11/25/24 15:30 O2 Del Method Room Air 11/25/24 15:30 ENMT Mouth: no TMJ abnormality Thyromental Distance: > or= 3.5 Finger Breadths Mallampati Class: II Neck normal visual inspection and trachea midline; neck extension not limited Respiratory normal respiratory effort Auscultation: lungs clear to auscultation bilaterally Cardiovascular Rate/Rhythm: regular rate and regular rhythm Heart Sounds: no murmur Musculoskeletal Spine: normal cervical ROM Extremities: full ROM of extremities Neurologic moves all extremities Psychiatric Orientation: alert and oriented x 3 Testing Stress Test Date: 03/27/22 Findings: + WNL Resting EF: 69
[2024-11-25] MEDS ORDERED: fentaNYL citrate PF 100 MCG/2 ML VIAL ONE (18:48)
[2024-11-25] MEDS ORDERED: ePHEDrine sulfate 50 MG/ML AMP IV PRN (18:51)
[2024-11-25] MEDS ORDERED: fentaNYL citrate PF 100 MCG/2 ML VIAL IV PRN (18:51)
[2024-11-25] MEDS ORDERED: ONDANSETRON INJ 2 MG/ML 2 ML VIAL IV PRN ×2 (18:51→20:37)
[2024-11-25] MEDS ORDERED: ATROPINE SULFATE 0.1 MG/ML 10ML SYR IV PRN (18:51)
[2024-11-25 18:53] LABS: Hematocrit (blood only) 45.5 % (42.0-52.0); Hemoglobin 15.6 g/dl (14.0-18.0); Mean Corpuscular Hemoglobin 32.4 pg (25.0-34.0); Mean Corpuscular Hgb Conc 34.3 g/dL (32.0-36.0); Mean Corpuscular Volume 94.6 fL (80.0-100.0); Mean Platelet Volume 9.8 fL (9.4-12.4); Platelet Count 111 K/uL (130-400); RDW Coefficient of Variation 12.3 % (11.5-14.5); RDW Standard Deviation 42.5 fL (36.4-46.3); Red Blood Count 4.81 M/uL (4.70-6.10); White Blood Count 7.24 K/ul (4.8-10.8)
[2024-11-25] MEDS ORDERED: ceFAZolin 330 MG/ML 1 GM VIAL ONE (18:53)
[2024-11-25 19:05] LABS: BUN Creatinine Ratio 28.4 (10-20); Calcium 9.1 mg/dl (8.6-10.3); Creatinine Clr Calc Pharmacy 83.1 ml/min
[2024-11-25] MEDS ORDERED: PHENYLEPHRINE 100MCG/ML 5ML SYR ONE (19:06)
[2024-11-25] MEDS: ceFAZolin 2000MG 2,000 MG/15 ML SYR IV ONE (19:08)
[2024-11-25] MEDS ORDERED: ePHEDrine sulfate 50 MG/ML AMP ONE (19:10)
[2024-11-25 19:18] LABS: INR 1.1 (0.9-1.1); Partial Thromboplastin Ratio 1.1; Partial Thromboplastin Time 29 Seconds (21-31); Prothrombin Time 11.4 Seconds (9.0-12.0)
--- NOTE | 2024-11-25 20:41 | Post Operative Brief Note ---
Immediate Post Op Note Date of Surgery November 25, 2024 Pre & Post Diagnosis Operation Date: 11/25/24 19:00 Pre-Op Diagnosis: Compartment syndrome of left lower extremity, Peripheral Artery Disease, Open wounds involving multiple regions of lower extremity, Coronary Artery Disease Post-Op Diagnosis: Compartment syndrome of left lower extremity, Peripheral Artery Disease, Open wounds involving multiple regions of lower extremity, Coronary Artery Disease I identified the patient and participated in the time-out.: Yes Procedure Operation Date: 11/25/24 19:00 Actual Procedures p Fasciotomy with Placement of Wound VAC of the Left Lower Extremity(Left) - Gregorio Vo DO 1. 4 compartment fasciotomy left lower extremity 2. Application wound VAC left lower extremity Surgeon Gregorio Vo DO Metal Engraver Marci De La Torre PA-C Estimated Blood Loss 100 Findings Consistent with Post-Op Diagnosis severely swollen anterior and lateral compartments with impending compartment syndrome of deep posterior and superficial posterior compartments. Once released, good muscle viability noted in deep posterior, superficial posterior, lateral compartments with questionable muscle viability anterior compartment. Anesthesia Type General Complications None Disposition Disposition: Surgical ICU Overlapping Procedure I was present for: the critical portions of procedure. (the entire surgery)
--- NOTE | 2024-11-25 20:43 | Critical Care Consultation ---
Date of Consultation November 25, 2024 Assessment & Plan (1) Compartment syndrome of left lower extremity: (2) PAD (peripheral artery disease): Plan Reason Critically Ill: 84 YOM s/p angio with IVL and NOREEN angioplasty to Left leg, injury/bleeding to BLANKA requiring coiling as well as 4 compartment fasciotomy secondary to compartment syndrome. Patient to ICU for continued NV/CV monitoring of LLE and hemodynamic monitoring. Neuro - Acute pain CAM ICU: NEGATIVE - Pain controll teired multimodal- ordered by orthopaedics service- tylenol scheduled, tiered oxycodone- Will add IV morphine if refractory to oral medications as well as rescue narcan ordered. - NV checks follow s/p fasciotomy Cardiac - Compartment syndrome, PAD, - s/p fasciotomy 4 compartments- follow pain, temperature, sensation, and drain output - drain management per orthopaedics- plan for return possibly Thursday11/27/24 - Antiplatelet medications on hold currently- resume when appropriate from cardiology and orthopaedics persepctive - follow CV and NV exams as above. Respiratory - No acute needs - wean oxygen - ETCO2 overnight GI - No acute needs - advance diet as tolerated RENAL/LYTES - No acute needs - No acute needs ENDO - No acute needs - ICU hyper/hypoglycemic protocol HEME - HX of mild thromobyctyopenia - EBL minimal - follow HGB/HCT - transfuse if HGB <7.0, actively bleeding or symptomatic ID - No concerns at this time for acute infective process - ANCEF post surgical doses as directed by Orthopaedics LINES/IV ACCESS - PIV, JEAN drain left leg Continue use of these lines DVT PROPHYLAXIS - SCDS, chemoprophylaxis once heoststasis is ensured DISPO: ICU overnight follow NV/CV status of left leg I have personally spent 40 minutes of care time in the direct management of this patient. This is a life/limb threatening event. This includes time spent evaluating patient, direct bedside care, chart review, placing orders, interpretation of diagnostic studies, discussion with consultants, patient, and family members, as well as other required patient management activities. This time is exclusive of all separately billable procedures, and teaching time and separate from and in addition to any other critical care service time. Thank you for allowing us to participate in the care of this patient. Please refer to my attending physician's documentation for any further recommendations. History of Present Illness Reason for Consultation: s/p compartment release for compartment syndrome Requesting Physician: Saw Sung MD Attending Physician: Saw Sung MD History of Present Illness 84 YOM with history of PAD, delayed wound healing to left foot, CAD, HLD, lumbar stenosis with LLE radiculopathy. Patient underwent angio today identifying multiple vessel PAD- he had a successful angioplasty with IVL and NOREEN of the LT popliteal artery and Successful angioplasty of the LT TPT and proximal DIRECTOR SURFACE TRANSPORTATION with IVL. During recovery phase, patient was noted to have increased pain to his left leg/foot and some increased swelling. He was found to have injury to his BLANKA on repeat angio, this was coiled and orthopaedic surgery followed up with patient for evaluation of compartment syndrome. He was noted to have tense compartments and was urgently taken to the operating room, where he had release of 4 compartments. He was then brought to the ICU for continued hemodynamic monitoring, NV/CV evaluations of his left foot. Patient was extubated and awake on NC. He is able to move his left foot and lower leg, he is with decreased sensation to his left toes and medial aspect of his left foot. Patient reports that this may also be consistent with his chronic neuropathy/radiculopathy. He is currently on no infusions or vasoactive medications. Case discussed with: Cardiology/endovascular- DR. Sung, Anesthesia- Dr. Harrison, Orthopaedics- Dr. Vo CODE: FULL Allergies Allergy/AdvReac Type Severity Reaction Status Date / Time No Known Allergies Allergy Verified 11/25/24 09:16 Home Medications Medication Instructions Recorded Confirmed Type aspirin 81 mg tablet,delayed 81 mg PO QAM 03/17/19 11/25/24 History release (Adult Aspirin Regimen) cholecalciferol (vitamin D3) 50 2,000 units PO QAM 03/17/19 11/25/24 History mcg (2,000 unit) capsule coenzyme Q10 100 mg capsule 100 mg PO QAM 03/18/19 11/25/24 History glucosamine-chondroitin 250 mg-200 2 tab PO QAM 03/18/19 11/25/24 History mg tablet (Osteo Bi-Flex) omega-3 fatty acids 1,000 mg 1,000 mg PO TID 03/18/19 11/25/24 History capsule (Fish Oil Concentrate) multivitamin 1 tab PO QAM 07/11/11/25/24 History vitamin B complex (B 1 tab PO QAM 07/11/20 11/25/24 History Complex-Vitamin B12 tablet) Cholest Md 2 tab PO QPM 04/29/23 11/25/24 History finasteride 5 mg tablet 5 mg PO QPM #90 tabs 12/31/23 11/25/24 Rx atorvastatin 40 mg tablet (Lipitor) 40 mg PO QPM #90 tabs 04/21/24 11/25/24 Rx niacin 1 tab PO .3 times weekly 08/22/24 11/25/24 History acetaminophen 500 mg tablet 1,000 mg PO BID 09/20/24 11/25/24 History (Tylenol Extra Strength) Patient History Medical History History of COVID-19 2021, home test, not hopsitalized; "flu symptoms">resolved. Hepatic cyst Under observation Kyphosis Hx of Clostridium difficile infection Resolved Renal cyst Under observation Lumbar spinal stenosis BPH (benign prostatic hyperplasia) GERD (gastroesophageal reflux disease) Occasionally Hyperlipidemia Well controlled w/meds TMJ syndrome Hx; resolved Surgical History History of cystoscopy with urolift 04/01/22 Dr. 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 Family History Father Heart disease Grandmother Diabetes Mother Diabetes Brother Prostate cancer Other No family history of adverse response to anesthesia Social History Smoking Status: Never smoker Second Hand Exposure: No; Do You Dip or Chew Tobacco: No; Hx Alcohol Use: No Hx Substance Use: No Preferred Language: Kazakh Communication Ability: Effective Agricultural Sales Representative Required: No Beliefs That Will Affect Care: None marital status: Current Living Situation: Spouse current occupational status: retired Other Information That Helps Us Care for You: No Feels Safe at Home: Yes Assistive Devices: None Review of Systems Review of Systems: REVIEW OF SYSTEMS: Constitutional: No fever, sweats or chills Eyes: No diplopia, no worsening or blurred vision ENT: normal hearing, no trouble swallowing Respiratory: No cough, sputum, dyspnea at rest or on exertion Cardiovascular: (+) pain left leg, poor healing ulcers, No chest pain, tightness or palpitations Abdomen: No pain, nausea, vomiting, diarrhea or constipation Musculoskeletal: (+) chronic back pain, left lower leg neuropathy, No joint pain, calf pain, swelling Neurologic: (+) as above, Psychiatric: No anxiety or depression Physical Exam Physical Exam: PHYSICAL EXAM: General: awake, alert, no apparent distress Head: Normocephalic, atraumatic ENT: PERRL, EOMI, no pharyngeal exudate, mucous membranes dry Neuro: AAO x 3, speech clear and appropriate, strength intact bilaterally 5/5, sensation intact and equal all extremities and dermatomes, no pronator drift Chest: equal rise and fall of the chest, no accessory muscle use, no heaves or thrills, Clear to auscultation, on room air, Cardiac: Regular rate and rhythm, telemetry reviewed, skin warm dry, Left foot warm, left toes cool but with good color, pulses palpable, left calf JEAN drain, and left leg wrapped with memo bandage no drainage or strike through. GI: NABS x 4 quadrants, soft, nontender to palpation, no rebound, guarding or tenderness : Spontaneously voiding, no pain, no CVA tenderness, Extremities: Normal inspection, no peripheral edema or erythema, calfs nontender to palpation Psych: Normal mood and affect Skin: no rash or erythema Results & Data Results & Data Vital Signs (Past 12 Hours) Vital Signs Pulse Resp BP Pulse Ox O2 Del Method 11/25/24 15:30 61 14 96 Room Air 11/25/24 15:15 61 14 96 Room Air 11/25/24 14:30 61 14 169/95 H 96 Room Air 11/25/24 14:15 61 14 169/95 H 96 Room Air 11/25/24 14:00 59 L 14 147/91 H 96 Room Air 11/25/24 13:45 64 14 147/91 H 95 Room Air 11/25/24 13:30 63 14 153/103 H 88 L Room Air 11/25/24 09:05 63 14 98 Room Air Laboratory Results Abnormal lab results 11/25/24 11/25/24 11/25/24 Range/Units 11:53 12:19 12:51 Plt Count (130-400) K/uL Activ Coag Time Kaolin 187 H 233 H 233 H (94-140) SECONDS BUN/Creatinine Ratio (10-20) Glucose (70-99(Fasting)) mg/dl 11/25/24 Range/Units 18:23 Plt Count 111 L (130-400) K/uL Activ Coag Time Kaolin (94-140) SECONDS BUN/Creatinine Ratio 28.4 H (10-20) Glucose 100 H (70-99(Fasting)) mg/dl Coding Level of Care Code 42566 INT INP/OBS CARE MIN Diagnoses Compartment syndrome of left lower extremity T79.A22A PAD (peripheral artery disease) I73.9
--- NOTE | 2024-11-25 20:43 | Operative Report ---
Post Operative Report Pre & Post Diagnosis Operation Date: 11/25/24 19:00 Pre-Op Diagnosis: Compartment syndrome of left lower extremity, Peripheral Artery Disease, Open wounds involving multiple regions of lower extremity, Coronary Artery Disease Post-Op Diagnosis: Compartment syndrome of left lower extremity, Peripheral Artery Disease, Open wounds involving multiple regions of lower extremity, Coronary Artery Disease I identified the patient and participated in the time-out.: Yes Procedure Operation Date: 11/25/24 19:00 Actual Procedures p Fasciotomy with Placement of Wound VAC of the Left Lower Extremity(Left) - Gregorio Vo DO 1. 4 compartment fasciotomy left lower extremity 2. Application of wound VAC, left lower extremity Surgeon Gregorio Vo DO Director Of Safety Marci De La Torre PA-C Estimated Blood Loss 100 Findings Consistent with Post-Op Diagnosis 1. Severely tense anterior and lateral compartments 2. Impending compartment syndrom deep posterior and superficial posterior cash rtments 3. Viable muscle tissue with good contractility in the lateral, deep posterior, superficial posterior compartments. Some areas of concern with regards to muscle viability in the anterior compartment. Fluids see anesthesia record Specimens none Indications Ajit is an 84-year-old gentleman who presented to the hospital today for angiography with attempted stenting of posterior tibial artery for chronic nonhealing wounds. This was done by Dr. Sung. Apparently during the procedure, injury to the anterior tibial artery occurred and when the patient awoke in the recovery unit, he was found to have concerns for compartment syndrome. I was called this afternoon at approximately 1645 for evaluation. At that time, I recommended calling vascular surgery as the patient clearly had a proximal arterial lesion bleeding into the compartment causing his symptoms. I also immediately rushed to the hospital to evaluate the patient. Upon arriving in the hospital, the patient was already in the endovascular suite so I was unable to appropriately obtain a history from him. Per Dr. Sung, he did call and speak with the vascular attending on-call who recommended no vascular intervention, instead recommended coiling the anterior tibial artery and calling orthopedics to release his compartments. I did evaluate the patient briefly prior to the coiling procedure and on evaluation, the patient had very tense anterior and lateral compartments with soft posterior compartments on palpation. I did use a Macon needle to evaluate his pressures as well. His preoperative diastolic blood pressure was 95 mmHg. Anterior compartment: 94 Lateral compartment: 90 Superficial posterior: 20 Deep posterior:15 Based on patient's clinical evaluation, his history including significant pain in his lower extremity, I do think that his diagnosis is consistent with compartment syndrome. I did call and discussed this with the patient's and I also obtained a phone consent from her for the anticipated procedure. Operative plan will be for fasciotomy of the anterior and lateral compartments followed by evaluation of the posterior compartments with possible 4 compartment fasciotomy if indicated. I did explain in great detail the risk of the procedure which include but are not limited to loss of life/limb, DVT, incomplete relief of pain, need for additional surgery, neurovascular damage, infection, wound healing complications. I did express to them that due to his significant lower extremity vascular disease, he is at a very high risk for amputation in the future. She understood this and all of her questions were answered to her satisfaction. We will proceed to the OR emergently at this point for fasciotomy with placement of wound VAC of the left lower extremity. Description of Procedure after informed consent was obtained, the patient was correctly identified in the preoperative holding suite, the operative site was marked with the surgeon's initials, the date of surgery, and the word yes. The patient was then taken to the operative suite. The department of anesthesia administered General anesthesia The patient was transferred from the [facility] to the operative table. All bony prominences were well-padded. Briefing and timeout was performed. All implants were available and sterile at the time. BRIEFING AND DEBRIEFING: Pre and post operative briefing and debriefing was performed. Introductions were made, goals of the procedure were discussed, questions and concerns were addressed. The operative site markings were identified and appropriate. A time [id number] was performed, the patient's correct identity was confirmed and the correct operative sites were identified. The patients pre-operative antibiotic dosing and administration was confirmed along with other SCIP measures. The team was polled at the completion of the surgery and all team members were in agreement that the procedure was without complication, the counts are correct, the wound class was identified and suggestions for improvement were shared. patient was transferred in supine fashion from the hospital bed to the operative table. A bump was placed under the ipsilateral hip. The patient's contralateral extremity and his arms were well-padded and secured in place. The leg was placed onto a bone foam ramp. The left lower extremity was prepped and draped in standard sterile fashion using Betadine scrub and paint. We began by marking out the anatomy of the fibula from the distal tip to the fibular head. We planned for our incision just on the anterior border of this in line with the fibula the entire length of the lower extremity. We ended up making a 20 cm incision. We dissected sharply through skin and then bluntly through subcutaneous tissue being sure to identify and protect the superficial peroneal nerve in the distal aspect of the incision in the anterior flap. We encountered the fascia and proximally, we teed the fascia over the intermuscular septum and then used curved James scissors to release the anterior compartment using a push and slide technique in both cephalad and caudal directions. We did this carefully to avoid neurovascular structures. Upon release of the fascia covering the anterior and lateral compartments we noted extrusion of the muscle and we tested its viability. In the lateral compartment all musculature was contractile, Red, and had appropriate consistency. In the anterior compartment, the muscle was still red in color, and about 75% was contractile using the electrocautery. None of this was debrided at this time because by the end of the procedure more of the muscle appeared beefy and red. We will wait for subsequent debridements to determine how much if any muscle needs to be de brided. We then turned our attention towards the posterior compartments. On manual palpation we compared the operative leg to the contralateral leg and felt as if the swelling had increased even since earlier evaluation, so we made the decision to prophylactically release the impending compartment syndrome in the posterior compartments. we then dissected within the lateral compartment posteriorly until we encountered the fascia overlying the superficial posterior compartment. This was released using the curved James scissors both cephalad and caudally. We then finger dissected on the posterior aspect of the fibula until we encountered the interosseous membrane and the posterior aspect of the tibia. Using the Marinelli elevator, a rent was made in the fascia overlying the FHL muscle belly and then blunt dissection using a finger in a cephalad and caudal direction then released the deep posterior compartment. The musculature in both the deep and superficial posterior compartments were visualized and appeared healthy and viable at this time. We then thoroughly irrigated the wound copiously with greater than 1 L of sterile saline. We would then plan to apply our wound VAC dressing. We first placed lap sponges in the wound and using a picture window technique applied the clear adherent dressings onto the skin. We cut the lap sponges out and then placed Adaptic over the exposed muscle. We then custom contoured the large black wound VAC sponge to fit the incision nicely. We would then use to Vesseloops and perform a Marrufo ladder tensioning device over top of the wound VAC making sure that all knots were on the wound VAC not on the skin edges. we secured the wound VAC and the Marrufo ladder tensioning device with the 1/2 clear dressings, applied the Juli pad and tested the suction. This was adequate and the seal was good. We set the wound VAC to 125 mmHg low continuous suction. The patient tolerated this procedure well and was transferred to the PACU in st able condition. Prior to transportation to PACU, all counts were correct and a briefing was performed at the end of the case. I was present for the entire procedure. Due to the complex nature of the procedure, the entire surgery was performed with the operational assistance of Marci De La Torre PA-C. The assistant manager airside operations, under direct supervision, was involved in the performance of all aspects of the surgical procedure including hemostasis, tissue retraction, instrument management, patient positioning and wound closure. Plan: Weight bearing status: nonweightbearing left lower extremity Wound care: keep wound VAC in place at 2125 mmHg low continuous Range of motion: as tolerated of knee and ankle VTE Prophylaxis: per cardiology/vascular Antibiotics: Ancef 2 g every 8 hours Pain Control: Multimodal Discharge Plan: pending Follow Up: pending clinical course I attest to the content of the Intraoperative Record and any orders documented therein. Any exceptions are noted below.
[2024-11-25] MEDS ORDERED: ceFAZolin 2000MG 2,000 MG/15 ML SYR IV SCH (21:00)
--- NOTE | 2024-11-25 21:27 | Anesthesiology Progress Note ---
Date of Service November 25, 2024 Anesthesia Post Procedure Vital Signs Vital Signs: Temp Pulse Resp BP Pulse Ox O2 Del Method O2 Flow Rate 11/25/24 21:01 36.6 C 83 24 140/81 99 Nasal Cannula 4 11/25/24 20:56 81 12 165/78 H 99 Oxymask 5 11/25/24 20:51 78 13 152/72 H 100 Oxymask 5 11/25/24 20:36 36.6 C 78 16 171/79 H 100 Oxymask 8 11/25/24 15:30 61 14 96 Room Air 11/25/24 15:15 61 14 96 Room Air 11/25/24 14:30 61 14 169/95 H 96 Room Air 11/25/24 14:15 61 14 169/95 H 96 Room Air 11/25/24 14:00 59 L 14 147/91 H 96 Room Air 11/25/24 13:45 64 14 147/91 H 95 Room Air 11/25/24 13:30 63 14 153/103 H 88 L Room Air 11/25/24 09:05 63 14 98 Room Air Transfer of Care Handoff Completed per policy Notes Mental Status: alert / awake / arousable Patient Amnestic to Procedure: Yes Nausea / Vomiting: adequately controlled Pain: adequately controlled Airway Patency, RR, SpO2: stable & adequate BP & HR: stable & adequate Hydration State: stable & adequate Anesthetic Complications: no major complications apparent and Pt Satisfied with anesthetic care
[2024-11-25] MEDS ORDERED: NALOXONE HCL 0.4 MG/1 ML VIAL/CARP IV PRN (21:35)
[2024-11-25] MEDS: ACETAMINOPHEN 325 MG TAB PO ONE (21:55)
[2024-11-25] MEDS: fentaNYL citrate PF 100 MCG/2 ML VIAL IV STA (22:01)
[2024-11-25] MEDS: ATORVASTATIN 40 MG TAB PO SCH (22:03)
[2024-11-25] MEDS: ceFAZolin 2000MG 2,000 MG/15 ML SYR IV SCH (22:03)
[2024-11-25] MEDS: MoRPHine SULFATE 2 MG/ML CARP IV STA (22:03)
[2024-11-25] MEDS: ACETAMINOPHEN 500 MG TAB PO SCH (22:03)
[2024-11-25] MEDS: FINASTERIDE 5 MG TAB PO SCH (22:03)
--- NOTE | 2024-11-26 00:20 | Endovascular Procedure Note ---
PG Endovascular Procedure Rpt Pre & Post Diagnosis Peripheral arterial disease Anterior tibial artery perforation I identified the patient and participated in the time-out.: Yes Procedure Angiogram BLANKA angioplasty BLANKA perforation coiling Mechanical closure device placement Moderate sedation Surgeon Saw Sung MD Manager Exchange Kayla Estimated Blood Loss 20 Findings Consistent with Post-Op Diagnosis Left lower extremity-- -UROLOGY PHYSICIAN, profunda widely patent -SFA--calcified distal 40% stenosis. -Popliteal--heavily calcified, diffuse disease up to 50% mid segment -BLANKA -- heavily calcified, diffuse proximal to mid disease, mid segment with evidence of dissection and apparent contrast extravasation TPTstent widely patent -UMBRELLA SUPERVISOR -- heavily calcified, proximal stent widely patent. Distal vessel widely patent to the foot. -Peroneal --patent to the ankle Anesthesia Type General Radiation Exposure (mGv) Radiation (mGy): 112 Contrast Contrast: 60 Complications none Disposition Accompanied Patient To Recovery: Yes Disposition: Surgical ICU Description of Procedure Indication: Patient underwent endovascular intervention to left TPT/UMBRELLA SUPERVISOR and left peroneal arteries earlier in the day for nonhealing left anterior hernandez wound in the sett ing of severe PAD. At beginning of procedure it was noted that 035 glide advantage wire inadvertently traveled down BLANKA and across area of occlusion during catheter/sheath exchange. Wire trajectory appeared outside of BLANKA and wire removed. Possible dissection in earlymid BLANKA before occlusion noted but no perforation appreciated. He underwent successful intervention to TPT/UMBRELLA SUPERVISOR with 2 nonoverlapping CHAR and angioplasty of peroneal with shockwave balloon. Post procedure and holding area initially endorsed significant pain but more so on his back and diffuse left lower leg. Upon repeat check later in the day continues to endorse significant pain in his lower leg and noted to have firm, swelling over upper anterior hernandez. Distal sensation/motor function chronically diminished. Sluggish capillary refill, PT dopplerable. Pain with passive flexion of ankle. Concern for anterior compartment syndrome. Vascular surgery and orthopedics contacted. Due to concern for possible ongoing bleeding patient was brought back urgently to cardiac [facility] [place] for repeat angiography. Dr. Vo with orthopedics presented to bedside. Procedure: Left UROLOGY PHYSICIAN access under micropuncture with ultrasound guidance and short 5 Fr sheath placed Angled glide catheter navigated down to popliteal over glide advantage wire Angiography confirmed patent TPT/UMBRELLA SUPERVISOR and peroneal. Angiography of BLANKA revealed what appeared to be early mid dissection and ongoing slow extravasation of contrast. Angled glide catheter navigated into BLANKA 0.14 command wire placed to mid BLANKA 2.5 balloon inflated in earlymid BLANKA and left inflated for >5 minutes ACT 130s Decision to proceed with attempted coil embolization Balloon and wire removed 6 mm 0.35 Paola [employer] medical coil delivered to earlymid BLANKA 4 mm 0.35 mm Paola [employer] medical will delivered to earlymid BLANKA Repeat angiography revealed occluded BLANKA proximal to prior dissection/perforation with no additional extravasation. Repeat angiography revealed patent UMBRELLA SUPERVISOR/peroneal to the foot Catheter was removed Closure of left UROLOGY PHYSICIAN access with Mynx device. Contrast used: 60 Moderate sedation: [id number] Access closure: Mynx Summary: 1. Successful coil embolization of earlymid left BLANKA perforation (mid/distal BLANKA chronically occluded without significant distal reconstitution). Recommendations: Evaluated by Dr. Vo with orthopedics in [place] [place]. Concern for anterior compartment syndrome and will be taken to the OR this evening for fasciotomy with admission to ICU to follow. Resume aspirin, clopidogrel when able pending clinical course. I attest to the content of the Intraoperative Record and any orders documented therein. Any exceptions are noted below. Vascular Charges Angiography/Venography Procedure 1: Angiography/Venography charges: [id number] Initial 3rd order or selective abd, pelvic, or LE branch Lower Extremity Interventions Procedure 1: Lower Extremity Intervention charges: [id number] Angioplasty, tibial, peroneal artery, unilateral, initial vessel (+ coil embolization of artery perforation) Additional Services Procedure 1: Additional Services Charges: 29382 Ultrasound guidance - vascular access Procedure 2: Additional Services Charges: 61331 Moderate sedation initial 15 min Procedure 3: Additional Services Charges: 16837 Moderate sedation, each additional 15 min
[2024-11-26] MEDS: oxyCODONE HCL IR 5 MG TAB (IMMEDIATE RELEASE) PO PRN (00:28)
[2024-11-26] MEDS: MoRPHine SULFATE 2 MG/ML CARP IV PRN (01:42)
[2024-11-26 05:13] LABS: Calcium 8.7 mg/dl (8.6-10.3); Creatinine Clr Calc Pharmacy 86.8 ml/min; Magnesium 1.9 mg/dl (1.7-2.4)
[2024-11-26 05:21] LABS: Hemoglobin 13.9 g/dl (14.0-18.0); Mean Corpuscular Hemoglobin 33.1 pg (25.0-34.0); Mean Corpuscular Hgb Conc 34.8 g/dL (32.0-36.0); Mean Corpuscular Volume 95.2 fL (80.0-100.0); Platelet Count 98 K/uL (130-400); RDW Coefficient of Variation 12.4 % (11.5-14.5); RDW Standard Deviation 43.1 fL (36.4-46.3); White Blood Count 5.82 K/ul (4.8-10.8)
[2024-11-26 05:22] LABS: Basophils # (auto) 0.01 K/uL (0.00-0.20); Basophils % (auto) 0.2 %; Eosinophils # (auto) 0.12 K/uL (0.00-0.50); Eosinophils % (auto) 2.1 %; Immature Granulocytes # (auto) 0.02 K/uL (0.01-0.20); Immature Granulocytes % (auto) 0.3 %; Lymphocytes # (auto) 0.66 K/uL (1.20-3.40); Lymphocytes % (auto) 11.3 %; Monocytes # (auto) 0.57 K/uL (0.11-0.59); Monocytes % (auto) 9.8 %; Neutrophils # (auto) 4.44 K/uL (1.40-6.50); Neutrophils % (auto) 76.3 %; Platelet Estimate Decreased (Normal)
[2024-11-26] MEDS ORDERED: DEXTROSE 50% 50 ML SYRINGE IV PRN (06:14)
[2024-11-26] MEDS ORDERED: GLUCAGON FOR INJ 1 MG VIAL SQ PRN (06:14)
[2024-11-26] MEDS ORDERED: GLUCOSE 10 TAB/TUBE PO PRN (06:14)
[2024-11-26] MEDS ORDERED: GLUCOSE 40% GEL 15 GM TUBE PO PRN (06:14)
[2024-11-26] MEDS ORDERED: CARBOHYDRATES FOR HYPOGLYCEMIA PO PRN (06:14)
[2024-11-26] MEDS: MAGNESIUM SULFATE / D5W 1 GM/100 ML BAG IV SCH (06:38)
[2024-11-26] MEDS: CHOLECALCIFEROL 25 MCG (1000 UNITS) TAB PO SCH (08:11)
--- NOTE | 2024-11-26 08:15 | Orthopedic Progress Note ---
Date of Service November 26, 2024 Assessment & Plan (1) Compartment syndrome of left lower extremity: (2) PAD (peripheral artery disease): (3) Open wounds involving multiple regions of lower extremity: (4) CAD (coronary artery disease): Plan 84-year-old gentleman doing well postoperative day #1 status post fasciotomy of the left lower extremity with application of wound VAC. Will plan to proceed to the operating room tomorrow for irrigation and debridement of the fasciotomy wound with potential closure versus partial closure and reapplication of wound VAC. I will be reaching out to Dr. Nash of plastic surgery today to discuss potential need for skin grafting in the future. I did discuss with the patient that he may require additional trips to the operating room based on the amount of possible that needs to be debrided when we proceed to the operating room tomorrow. He expressed understanding to this. Patient will be n.p.o. after midnight tonight for OR tomorrow morning. Admission and Anticipated Discharge Date Admission Date: November 25, 2024 Subjective 84-year-old gentleman postoperative day #1 status post 4 compartment fasciotomy of the left lower extremity with application of wound VAC. Patient notes pain in his lower extremity today, but is able to find a comfortable position. Review of Systems Review of Systems: All systems reviewed & are unremarkable except as noted in HPI & below Physical Exam Physical Exam: On physical examination, the patient's wound VAC is functioning appropriately. He has no increase in pain in his leg with passive motion of the ankle or the toes. His compartments posteriorly remain soft and compressible. Results & Data Vital Signs (Past 12 Hours) Vital Signs Temp Pulse Pulse Resp BP BP Pulse Ox 11/26/24 07:19 73 17 169/86 H 96 11/26/24 06:00 65 15 144/69 H 95 11/26/24 05:00 60 14 140/70 97 11/26/24 04:00 36.3 C L 59 L 13 141/72 H 95 11/26/24 03:00 71 15 130/66 94 11/26/24 02:09 80 12 132/74 93 11/26/24 01:00 64 16 150/69 H 95 11/26/24 00:00 36.4 C L 62 15 132/67 95 11/26/24 00:00 61 11/25/24 23:00 69 12 159/74 H 100 11/25/24 22:30 75 14 143/84 H 99 11/25/24 22:15 81 21 149/86 H 98 11/25/24 22:00 75 18 159/75 H 98 11/25/24 21:45 80 20 160/80 H 98 11/25/24 21:30 78 22 151/76 H 99 11/25/24 21:28 11/25/24 21:15 78 23 97 11/25/24 21:05 155/82 H 11/25/24 21:01 36.6 C 80 18 155/82 H 98 11/25/24 21:00 36.6 C 83 24 140/81 99 11/25/24 20:50 81 12 165/78 H 99 11/25/24 20:40 78 13 152/72 H 100 11/25/24 20:36 36.6 C 78 16 171/79 H 100 O2 Del Method O2 Flow Rate 11/26/24 07:19 Room Air 11/26/24 06:00 Room Air 11/26/24 05:00 Room Air 11/26/24 04:00 Room Air 11/26/24 03:00 Room Air 11/26/24 02:09 Room Air 11/26/24 01:00 Room Air 11/26/24 00:00 Room Air 11/26/24 00:00 11/25/24 23:00 Nasal Cannula 2 11/25/24 22:30 Nasal Cannula 2 11/25/24 22:15 Nasal Cannula 2 11/25/24 22:00 Nasal Cannula 2 11/25/24 21:45 Nasal Cannula 2 11/25/24 21:30 Nasal Cannula 2 11/25/24 21:28 Nasal Cannula 2 11/25/24 21:15 Nasal Cannula 2 11/25/24 21:05 11/25/24 21:01 Nasal Cannula 2 11/25/24 21:00 Nasal Cannula 4 11/25/24 20:50 Oxymask 5 11/25/24 20:40 Oxymask 5 11/25/24 20:36 Oxymask 8
--- NOTE | 2024-11-26 09:00 | Critical Care Progress Note ---
Date of Service November 26, 2024 Assessment & Plan (1) Compartment syndrome of left lower extremity: (2) PAD (peripheral artery disease): Plan Impression: 84-year-old male with severe peripheral vascular disease status post intervention. He required 4 compartment release fasciotomies and is being observed in the ICU. Pain management continues to be somewhat of an issue. Recommendations: 1. Compartment syndrome: Reviewed orthopedics notes. Continue supportive care. Plan on returning to the OR in the next 24 hours to assess for potential closure. Continue wound VAC. 2. Will consult pain management for long-term pain management strategies. Patient's oxycodone and morphine have not been effective in alleviating his pain. 3. Mild anemia: Suspect due to acute blood loss. No indication for transfusion and no evidence of ongoing blood loss. Will follow for now. He does demonstrate mild thrombocytopenia which will be trended over time. 4. Activity as tolerated. 5. Hypertension: Patient is not taking antihypertensive at home. Unclear how much of this could be related to inadequate analgesia but given his comorbid conditions, seems reasonable to place him on a low-dose of beta-angel. Will continue to observe in the ICU. Admission and Anticipated Discharge Date Admission Date: November 25, 2024 Subjective Patient seen and examined. EMR reviewed. Discussed with critical care DIANA and agree with assessment plan as noted from previous night. The patient is sitting up eating breakfast this morning. His pain remains problematic but it is the only issue that he is having currently. He is not experiencing any chest pain or shortness of breath. He denies any nausea vomiting or diarrhea. No new concerns Review of Systems Review of Systems: All systems reviewed & are unremarkable except as noted in Subjective Physical Exam Physical Exam: PHYSICAL EXAM: General: awake, alert, no apparent distress Head: Normocephalic, atraumatic ENT: PERRL, EOMI, no pharyngeal exudate, mucous membranes dry Neuro: AAO x 3, speech clear and appropriate, strength intact bilaterally 5/5, sensation intact and equal all extremities and dermatomes, no pronator drift Chest: equal rise and fall of the chest, no accessory muscle use, no heaves or thrills, Clear to auscultation, on room air, Cardiac: Regular rate and rhythm, telemetry reviewed, skin warm dry, Left foot warm, left toes cool but with good color, pulses palpable, left calf JEAN drain, and left leg wrapped with memo bandage no drainage or strike through. GI: NABS x 4 quadrants, soft, nontender to palpation, no rebound, guarding or tenderness : Spontaneously voiding, no pain, no CVA tenderness, Extremities: Normal inspection, no peripheral edema or erythema, calfs nontender to palpation Psych: Normal mood and affect Skin: no rash or erythema Results & Data Results & Data Vital Signs (Past 12 Hours) Vital Signs Temp Pulse Pulse Resp BP BP Pulse Ox 11/26/24 07:19 73 17 169/86 H 96 11/26/24 06:00 65 15 144/69 H 95 11/26/24 05:00 60 14 140/70 97 11/26/24 04:00 36.3 C L 59 L 13 141/72 H 95 11/26/24 03:00 71 15 130/66 94 11/26/24 02:09 80 12 132/74 93 11/26/24 01:00 64 16 150/69 H 95 11/26/24 00:00 36.4 C L 62 15 132/67 95 11/26/24 00:00 61 11/25/24 23:00 69 12 159/74 H 100 11/25/24 22:30 75 14 143/84 H 99 11/25/24 22:15 81 21 149/86 H 98 11/25/24 22:00 75 18 159/75 H 98 11/25/24 21:45 80 20 160/80 H 98 11/25/24 21:30 78 22 151/76 H 99 11/25/24 21:28 11/25/24 21:15 78 23 97 11/25/24 21:05 155/82 H 11/25/24 21:01 36.6 C 80 18 155/82 H 98 11/25/24 21:00 36.6 C 83 24 140/81 99 O2 Del Method O2 Flow Rate 11/26/24 07:19 Room Air 11/26/24 06:00 Room Air 11/26/24 05:00 Room Air 11/26/24 04:00 Room Air 11/26/24 03:00 Room Air 11/26/24 02:09 Room Air 11/26/24 01:00 Room Air 11/26/24 00:00 Room Air 11/26/24 00:00 11/25/24 23:00 Nasal Cannula 2 11/25/24 22:30 Nasal Cannula 2 11/25/24 22:15 Nasal Cannula 2 11/25/24 22:00 Nasal Cannula 2 11/25/24 21:45 Nasal Cannula 2 11/25/24 21:30 Nasal Cannula 2 11/25/24 21:28 Nasal Cannula 2 11/25/24 21:15 Nasal Cannula 2 11/25/24 21:05 11/25/24 21:01 Nasal Cannula 2 11/25/24 21:00 Nasal Cannula 4 Critical Care Results & Data Vital Signs (Past 12 Hours) Vital Signs Temp Pulse Pulse Resp BP BP Pulse Ox 11/26/24 07:19 73 17 169/86 H 96 11/26/24 06:00 65 15 144/69 H 95 11/26/24 05:00 60 14 140/70 97 11/26/24 04:00 36.3 C L 59 L 13 141/72 H 95 11/26/24 03:00 71 15 130/66 94 11/26/24 02:09 80 12 132/74 93 11/26/24 01:00 64 16 150/69 H 95 11/26/24 00:00 36.4 C L 62 15 132/67 95 11/26/24 00:00 61 11/25/24 23:00 69 12 159/74 H 100 11/25/24 22:30 75 14 143/84 H 99 11/25/24 22:15 81 21 149/86 H 98 11/25/24 22:00 75 18 159/75 H 98 11/25/24 21:45 80 20 160/80 H 98 11/25/24 21:30 78 22 151/76 H 99 11/25/24 21:28 11/25/24 21:15 78 23 97 11/25/24 21:05 155/82 H 11/25/24 21:01 36.6 C 80 18 155/82 H 98 11/25/24 21:00 36.6 C 83 24 140/81 99 O2 Del Method O2 Flow Rate 11/26/24 07:19 Room Air 11/26/24 06:00 Room Air 11/26/24 05:00 Room Air 11/26/24 04:00 Room Air 11/26/24 03:00 Room Air 11/26/24 02:09 Room Air 11/26/24 01:00 Room Air 11/26/24 00:00 Room Air 11/26/24 00:00 11/25/24 23:00 Nasal Cannula 2 11/25/24 22:30 Nasal Cannula 2 11/25/24 22:15 Nasal Cannula 2 11/25/24 22:00 Nasal Cannula 2 11/25/24 21:45 Nasal Cannula 2 11/25/24 21:30 Nasal Cannula 2 11/25/24 21:28 Nasal Cannula 2 11/25/24 21:15 Nasal Cannula 2 11/25/24 21:05 11/25/24 21:01 Nasal Cannula 2 11/25/24 21:00 Nasal Cannula 4 Lab & Micro Results (Past 24 Hours) RBC 4.20 M/uL (4.70-6.10) L 11/26/24 WBC 5.82 K/ul (4.8-10.8) 11/26/24 Hgb 13.9 g/dl (14.0-18.0) L 11/26/24 Hct 40.0 % (42.0-52.0) L 11/26/24 MCV 95.2 fL (80.0-100.0) 11/26/24 MCH 33.1 pg (25.0-34.0) 11/26/24 MCHC 34.8 g/dL (32.0-36.0) 11/26/24 RDW Standard Deviation 43.1 fL (36.4-46.3) 11/26/24 RDW Coefficient of Variation 12.4 % (11.5-14.5) 11/26/24 Plt Count 98 K/uL (130-400) L 11/26/24 MPV 10.0 fL (9.4-12.4) 11/26/24 Neutrophils (%) (Auto) 76.3 % 11/26/24 Lymphocytes (%) (Auto) 11.3 % 11/26/24 Monocytes # (Auto) 0.57 K/uL (0.11-0.59) 11/26/24 Eosinophils # (Auto) 0.12 K/uL (0.00-0.50) 11/26/24 Immature Granulocyte % (Auto) 0.3 % 11/26/24 Neutrophils # (Auto) 4.44 K/uL (1.40-6.50) 11/26/24 Lymphocytes # (Auto) 0.66 K/uL (1.20-3.40) L 11/26/24 Monocytes # (Auto) 0.57 K/uL (0.11-0.59) 11/26/24 Eosinophils # (Auto) 0.12 K/uL (0.00-0.50) 11/26/24 Basophils # (Auto) 0.01 K/uL (0.00-0.20) 11/26/24 Immature Granulocyte # (Auto) 0.02 K/uL (0.01-0.20) 5 Na 140 mmol/L (136-145) 11/26/24 K 4.0 mmol/L (3.5-5.1) 11/26/24 Cl 106 mmol/L (98-107) 11/26/24 CO2 32 mmol/L (21-32) 11/26/24 Anion Gap 2 (3-11) L 11/26/24 BUN 18 mg/dl (6-23) 11/26/24 Creatinine 0.75 mg/dl (0.6-1.4) 11/26/24 BUN/Creatinine Ratio 24.0 (10-20) H 11/26/24 Glu 103 mg/dl (70-99(Fasting)) H 11/26/24 Ca 8.7 mg/dl (8.6-10.3) 11/26/24 Mg 1.9 mg/dl (1.7-2.4) 11/26/24 04: Calcium Level 8.7 mg/dl (8.6-10.3) 11/26/24 04:25 Prothromb Time International Ratio 1.1 (0.9-1.1) 11/25/24 18:2 3 I & O Totals 24 Hours 11/25/24 11/26/24 11/27/24 06:59 06:59 06:59 Intake Total 940 / 940 74.167 / 74.167 Output Total 1375 / 1375 Balance -435 / -435 74.167 / 74.167 Cumulative 11/18/24 10:29 thru 11/26/24 08:07 Intake Total 1014.167 Output Total 1375 Balance -360.833 RT Ventilator Mngmt (Last Documented) Ventilator Ordered Settings Respiratory Rate 17 11/26/24 07:19 Ventilator - PT Measurements Respiratory Rate 17 Coding Level of Care Code 97964 SUB INP/OBS CARE 235MIN Diagnoses Compartment syndrome of left lower extremity T79.A22A PAD (peripheral artery disease) I73.9
[2024-11-26] MEDS: METOPROLOL TARTRATE 25 MG TAB PO SCH (10:08)
--- NOTE | 2024-11-26 21:05 | Vascular Medicine ProgressNote ---
Date of Service November 26, 2024 Assessment & Plan (1) Compartment syndrome of left lower extremity: Plan: Post fasciotomy 11/25 2. Left anterior tibial artery perforation post core embolization 3. Lower extremity PAD Post stenting of left TPT/PT with CHAR, angioplasty of peroneal 11/25. BLANKA chronically occluded -- 02/2024 LLE popliteal [id number]% restenosis (no pullback gradient) 4. Nonhealing left leg anterior hernandez wound 5. Thrombocytopenia 6. Lumbar spinal stenosisradiculopathy post back surgery x 2 7. Dyslipidemia 8. PVCsasymptomatic Distal left lower extremity appears well-perfused. Stable distal sensation and motor function. No apparent ROLLER LEVELER access site complications. Pain better controlled sitting up. Will monitor platelets Plan to resume aspirin. Continue current statin. Resume clopidogrel when safe from a surgical standpoint. Appreciate Dr. Vo and ICU team care. Admission and Anticipated Discharge Date Admission Date: November 25, 2024 Subjective Patient seen today late morning. He was sitting up in reclining chair. Comfortable, pain improved while sitting up. Left leg dressed wound VAC in place. Telemetry reviewedsinus with PVCs, occasional couplets Review of Systems Review of Systems: All systems reviewed & are unremarkable except as noted in HPI & below Physical Exam Physical Exam: General: Comfortable HEENT: Sclerae anicteric Lungs: Clear to auscultation bilaterally Cardiac: Regular rate and rhythm, no murmurs. Vascular: 2+ radial. Left ROLLER LEVELER dressing in place. Minimal ecchymosis. No hematoma. 2+ left ROLLER LEVELER pulse. Palpable left popliteal pulse. Normal capillary refill bilaterally. Left foot warm. Sensation light touch reduced over medial aspect of foot/13 digits (chronic). Limited flexion extension of toes on the left (chronic) Abdomen: Soft, nontender Extremities: Left leg with Richard bandage extending from foot above-knee wound in place draining serosanguineous fluid Psych: Alert orient x3, normal affect and mood Results & Data Vital Signs (Past 12 Hours) Vital Signs Temp Pulse Resp BP Pulse Ox O2 Del Method 11/26/24 20:16 139/76 11/26/24 20:00 98.8 F 87 20 94 Room Air 11/26/24 19:00 85 18 146/76 H 94 Room Air 11/26/24 19:00 83 11/26/24 18:03 89 12 11/26/24 18:00 141/77 H 11/26/24 17:51 82 95 11/26/24 17:03 88 14 92 11/26/24 17:00 172/77 H 11/26/24 16:48 82 16 96 11/26/24 16:09 82 17 97 11/26/24 16:00 155/86 H 11/26/24 16:00 87 11/26/24 15:57 75 18 97 11/26/24 15:33 66 14 95 11/26/24 15:00 144/69 H 11/26/24 14:48 68 26 H 96 11/26/24 14:03 64 15 94 11/26/24 14:00 126/71 11/26/24 13:48 63 14 96 11/26/24 13:33 65 13 97 11/26/24 13:00 131/61 11/26/24 12:54 64 97 11/26/24 12:52 163/80 H 11/26/24 12:51 69 92 11/26/24 12:06 63 14 97 11/26/24 11:15 Room Air 11/26/24 11:12 76 16 93 11/26/24 11:00 141/63 H 11/26/24 10:51 70 14 98 11/26/24 10:12 71 139/72 96 Room Air 11/26/24 10:00 78 13 PG Care Time/CCT Total # of Minutes Spent Total Time Spent with Patient: Total time spent is greater than 50% in coordination of care (as documented) at patient's floor/unit and/or counseling patient: Coding Level of Care Code 26689 SUB INP/OBS CARE 3/50MIN Diagnoses Compartment syndrome of left lower extremity T79.A22A
[2024-11-27] MEDS: oxyCODONE HCL IR 5 MG TAB (IMMEDIATE RELEASE) PO PRN (00:38)
[2024-11-27 04:32] LABS: Basophils # (auto) 0.02 K/uL (0.00-0.20); Basophils % (auto) 0.3 %; Eosinophils # (auto) 0.14 K/uL (0.00-0.50); Eosinophils % (auto) 2.3 %; Hemoglobin 13.3 g/dl (14.0-18.0); Immature Granulocytes # (auto) 0.01 K/uL (0.01-0.20); Immature Granulocytes % (auto) 0.2 %; Lymphocytes # (auto) 1.14 K/uL (1.20-3.40); Lymphocytes % (auto) 18.8 %; Mean Corpuscular Hemoglobin 32.6 pg (25.0-34.0); Mean Corpuscular Hgb Conc 34.1 g/dL (32.0-36.0); Mean Corpuscular Volume 95.6 fL (80.0-100.0); Mean Platelet Volume 9.5 fL (9.4-12.4); Monocytes # (auto) 0.88 K/uL (0.11-0.59); Monocytes % (auto) 14.5 %; Neutrophils # (auto) 3.86 K/uL (1.40-6.50); Neutrophils % (auto) 63.9 %; Platelet Count 105 K/uL (130-400); RDW Coefficient of Variation 12.3 % (11.5-14.5); RDW Standard Deviation 42.7 fL (36.4-46.3); Red Blood Count 4.08 M/uL (4.70-6.10); White Blood Count 6.05 K/ul (4.8-10.8)
[2024-11-27 04:49] LABS: BUN Creatinine Ratio 21.5 (10-20); Calcium 8.8 mg/dl (8.6-10.3); Creatinine Clr Calc Pharmacy 100.1 ml/min; Potassium 4.1 mmol/L (3.5-5.1)
[2024-11-27] MEDS ORDERED: ONDANSETRON INJ 2 MG/ML 2 ML VIAL ONE (07:01)
[2024-11-27] MEDS ORDERED: fentaNYL citrate PF 100 MCG/2 ML VIAL ONE (07:01)
[2024-11-27] MEDS ORDERED: LIDOCAINE 2% 2 ML VIAL/AMP(20MG/ML) INFIL ONE (07:01)
[2024-11-27] MEDS ORDERED: PROPOFOL IV EMULSION 10 MG/ML 20 ML VIAL IV ONE (07:01)
[2024-11-27] MEDS ORDERED: ROPIVACAINE 0.5% 5 MG/ML 30 ML VIAL ONE (07:21)
[2024-11-27] MEDS ORDERED: EPINEPHrine INJ 1 MG/ML AMP ONE (07:21)
--- NOTE | 2024-11-27 07:22 | History & Physical Bridge Note ---
Date of Service November 27, 2024 History & Physical Bridge Note I have examined the patient, reviewed the History & Physical and in the interval since the performance of the History & Physical I have noted the following changes of clinical significance: no changes noted Plan for irrigation and debridement left lower extremity fasciotomy wound with partial versus full closure versus application of wound VAC.
--- NOTE | 2024-11-27 07:22 | Orthopedic Progress Note ---
Date of Service November 27, 2024 Assessment & Plan (1) Compartment syndrome of left lower extremity: (2) PAD (peripheral artery disease): (3) Open wounds involving multiple regions of lower extremity: (4) CAD (coronary artery disease): Plan 84-year-old gentleman doing well postoperative day #2 status post fasciotomy of the left lower extremity with application of wound VAC. Will plan to proceed to the operating room today for irrigation and debridement of the fasciotomy wound with potential closure versus partial closure and reapplication of wound VAC. I spoke with Dr. Nash of plastic surgery yesterday to discuss potential need for skin grafting in the future. I will update her today with regards to how much of the wound was able to be closed. I did discuss with the patient that he may require additional trips to the operating room based on the amount of possible that needs to be debrided when we proceed to the operating room this morning. He expressed understanding to this. Patient has been n.p.o. since midnight for OR this morning. Admission and Anticipated Discharge Date Admission Date: November 25, 2024 Subjective POD2 s/p 4 compartment fasciotomies. resting comfortably. NPO since midnight Review of Systems Review of Systems: All systems reviewed & are unremarkable except as noted in HPI & below Physical Exam Physical Exam: On physical examination, the patient's wound VAC is functioning appropriately. He has no increase in pain in his leg with passive motion of the ankle or the toes. His compartments posteriorly remain soft and compressible. Results & Data Vital Signs (Past 12 Hours) Vital Signs Temp Pulse Pulse Resp BP BP Pulse Ox 11/27/24 06:00 72 23 131/61 96 11/27/24 05:01 66 12 132/68 95 11/27/24 04:00 36.9 C 68 14 109/71 95 11/27/24 03:00 65 14 129/63 93 11/27/24 02:00 67 12 135/67 94 11/27/24 01:00 71 13 137/70 94 11/27/24 00:00 36.6 C 75 15 141/72 H 94 11/27/24 00:00 81 11/26/24 23:00 77 15 134/73 91 11/26/24 22:00 82 13 153/81 H 95 11/26/24 21:01 88 16 162/76 H 96 11/26/24 20:16 139/76 11/26/24 20:00 11/26/24 20:00 37.1 C 87 20 94 O2 Del Method 11/27/24 06:00 Room Air 11/27/24 05:01 Room Air 11/27/24 04:00 Room Air 11/27/24 03:00 Room Air 11/27/24 02:00 Room Air 11/27/24 01:00 Room Air 11/27/24 00:00 Room Air 11/27/24 00:00 11/26/24 23:00 Room Air 11/26/24 22:00 Room Air 11/26/24 21:01 Room Air 11/26/24 20:16 11/26/24 20:00 Room Air 11/26/24 20:00 Room Air
--- NOTE | 2024-11-27 07:29 | Anesthesiology Consultation ---
Date of Service November 27, 2024 Assessment & Plan Chart Review Chart Review: Acceptable Risk for Surgery and Patient NOT seen in Pre Admission Testing Consults Requested none ASA ASA4 Proposed Anesthesia Anesthesia Type: General Regional Regional Laterality: Left Site: Popliteal History Surgery Operation Date: 11/25/24 10:00 Proposed Procedures p Left Lower Extremity Angiogram - Saw Sung MD Operation Date: 11/25/24 16:00 Proposed Procedures p Cardiac Cath Procedure - Saw Sung MD Operation Date: 11/25/24 19:00 Proposed Procedures p Fasciotomy(Left) - Gregorio Vo DO Operation Date: 11/27/24 07:30 Proposed Procedures p Irrigation & Debridement With Possible Wound Closure vs. Wound Vac Left Lower Leg(Left) - Gregorio Vo DO Height/Weight Height: 6 ft 2 in Weight: 87.4 kg Allergies Allergy/AdvReac Type Severity Reaction Status Date / Time No Known Allergies Allergy Verified 11/25/24 09:16 Medications Home Medications Medication Instructions Recorded Confirmed Last Taken aspirin 81 mg tablet,delayed 81 mg PO QAM 03/17/19 11/25/24 11/25/24 release (Adult Aspirin Regimen) cholecalciferol (vitamin D3) 50 2,000 units PO QAM 03/17/19 11/25/24 05/06/23 mcg (2,000 unit) capsule coenzyme Q10 100 mg capsule 100 mg PO QAM 03/18/19 11/25/24 05/05/23 glucosamine-chondroitin 250 mg-200 2 tab PO QAM 03/18/19 11/25/24 05/05/23 mg tablet (Osteo Bi-Flex) omega-3 fatty acids 1,000 mg 1,000 mg PO TID 03/18/19 11/25/24 03/31/22 08:00 capsule (Fish Oil Concentrate) multivitamin 1 tab PO QAM 07/11/20 11/25/24 03/31/22 08:00 vitamin B complex (B 1 tab PO QAM 07/11/20 11/25/24 03/31/22 08:00 Complex-Vitamin B12 tablet) Cholest Md 2 tab PO QPM 04/29/23 11/25/24 05/05/23 finasteride 5 mg tablet 5 mg PO QPM #90 tabs 12/31/23 11/25/24 Unknown atorvastatin 40 mg tablet (Lipitor) 40 mg PO QPM #90 tabs 04/21/24 11/25/24 Unknown niacin 1 tab PO .3 times weekly 08/22/24 11/25/24 Unknown acetaminophen 500 mg tablet 1,000 mg PO BID 09/20/24 11/25/24 Unknown (Tylenol Extra Strength) Active Medications Generic Name Dose Route Start Last Admin Trade Name Freq PRN Reason Stop Dose Admin Acetaminophen 1,000 mg 11/25/24 21:45 11/26/24 21:11 Acetaminophen 500 Mg Tab PO 12/25/24 21:44 1,000 mg BID OLY Administration Atorvastatin Calcium 40 mg 11/25/24 21:00 11/26/24 21:14 Atorvastatin 40 Mg Tab PO 12/25/24 20:59 40 mg QPM OLY Administration Finasteride 5 mg 11/25/24 21:00 11/26/24 21:10 Finasteride 5 Mg Tab PO 12/25/24 20:59 5 mg QPM OLY Administration Cefazolin Sodium 2,000 mg in 15 mls @ 3.75 mls/min 11/25/24 21:45 11/27/24 06:34 Ancef 2000mg IV 12/02/24 21:44 3.75 mls/min Q8H OLY Administration Metoprolol Tartrate 12.5 mg 11/26/24 09:00 11/26/24 21:11 Metoprolol Tartrate 25 Mg Tab PO 12/26/24 08:59 12.5 mg BID OLY Administration Morphine Sulfate 2 mg 11/25/24 21:35 11/26/24 21:10 Morphine Sulfate 2 Mg/Ml Carp IV 12/09/24 21:34 2 mg Q4H PRN Administration severe pain not relieved by PO Oxycodone HCl 5 mg 11/25/24 20:49 11/27/24 00:38 Oxycodone Hcl Ir 5 Mg Tab (Immediate Release) PO 12/09/24 20:48 5 mg Q4H PRN Administration Pain Oxycodone HCl 10 mg 11/25/24 20:52 11/26/24 00:28 Oxycodone Hcl Ir 5 Mg Tab (Immediate Release) PO 12/09/24 20:51 10 mg Q4H PRN Administration Pain Vitamin D 50 mcg 11/26/24 09:00 11/26/24 08:11 Cholecalciferol 25 Mcg (1000 Units) Tab PO 12/26/24 08:59 50 mcg QAM OLY Administration Past Medical History Medical History History of COVID-19 2021, home test, not hopsitalized; "flu symptoms">resolved. Hepatic cyst Under observation Kyphosis Hx of Clostridium difficile infection Resolved Renal cyst Under observation Lumbar spinal stenosis BPH (benign prostatic hyperplasia) GERD (gastroesophageal reflux disease) Occasionally Hyperlipidemia Well controlled w/meds TMJ syndrome Hx; resolved PVD ASCVD Exercise / Class Metabolic Activity III < 4 Walking/Shop/Light housework Past Family History Family History Father Heart disease Grandmother Diabetes Mother Diabetes Brother Prostate cancer Other No family history of adverse response to anesthesia Past Surgical History Surgical History History of cystoscopy with urolift 04/01/22 Dr. Coles History of tooth extraction with implants History of tonsillectomy Hx of colonoscopy (2022) S/P shoulder surgery bilat S/P cataract surgery bilat History of back surgery 2016, [place]; 2019, 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 Past Anesthesia History No Hx of Anesthesia Complications and No Family Hx of Anesthesia Complications History of PONV No Hx of PONV and No Hx of Motion Sickness Social History Smoking Status: Never smoker Do You Dip or Chew Tobacco: No Hx Alcohol Use: Yes Alcohol type: wine alcohol intake frequency: holidays/special occasions only Hx Substance Use: No substance use type: does not use Physical Exam Vital Signs Last Vital Signs Temp 36.9 C 11/27/24 04:00 Pulse 72 11/27/24 06:00 Resp 23 11/27/24 06:00 BP 131/61 11/27/24 06:00 Pulse Ox 96 11/27/24 06:00 O2 Del Method Room Air 11/27/24 06:00 O2 Flow Rate 2 11/25/24 23:00 Testing Laboratory Results 11/27/24 04:13 11/27/24 04:13 PT 11.4 Seconds (9.0-12.0) 11/25/24 18:23 INR 1.1 (0.9-1.1) 11/25/24 18:23 APTT 29 Seconds (21-31) 11/25/24 18:23 Blood Type O Positive 11/25/24 18:23 Antibody Screen NEGATIVE 11/25/24 18:23 11/26/24 21:22 POC Glucose 127 H Electrocardiogram Date: 01/31/22 Findings: + NSR @ (@ 68 w/ 1st degree AVB;w/ occas. pvc's)
[2024-11-27] MEDS ORDERED: fentaNYL citrate PF 100 MCG/2 ML VIAL IV PRN (07:39)
[2024-11-27] MEDS ORDERED: ePHEDrine sulfate 50 MG/ML AMP IV PRN (07:39)
[2024-11-27] MEDS ORDERED: ATROPINE SULFATE 0.1 MG/ML 10ML SYR IV PRN (07:39)
[2024-11-27] MEDS ORDERED: HYDROmorphone INJ 1 MG/ML SYRINGE IV PRN (07:39)
[2024-11-27] MEDS ORDERED: NALOXONE HCL 0.4 MG/1 ML VIAL/CARP IV PRN (07:39)
[2024-11-27] MEDS ORDERED: PROMETHAZINE HCL 6.25 MG in SODIUM CHLORIDE 0.9% 50 ML IV PRN (07:39)
[2024-11-27] MEDS ORDERED: LABETALOL HCL IV 5 MG/ML 20ML IV PRN (07:39)
[2024-11-27] MEDS ORDERED: FLUMAZENIL 0.1 MG/1 ML 10 ML VIAL IV PRN (07:39)
[2024-11-27] MEDS ORDERED: ONDANSETRON INJ 2 MG/ML 2 ML VIAL IV PRN (07:39)
--- NOTE | 2024-11-27 08:18 | Critical Care Progress Note ---
Date of Service November 27, 2024 Assessment & Plan (1) Compartment syndrome of left lower extremity: (2) PAD (peripheral artery disease): Plan Impression: 84-year-old male with severe peripheral vascular disease status post intervention. He required 4 compartment release fasciotomies and is being observed in the ICU. Recommendations: 1. Compartment syndrome: Resolved. Continue supportive care. Postop day 0 continue wound VAC. 2. Will consult pain management for long-term pain management strategies. 3. Mild anemia: Suspect due to acute blood loss. No indication for transfusion and no evidence of ongoing blood loss. Will follow for now. He does demonstrate mild thrombocytopenia which will be trended over time. 4. Activity as tolerated. 5. Hypertension: Patient is not taking antihypertensive at home. Possible relation to recent painful comorbid conditions, blood pressure improved today. Stable for downgrade out of ICU Admission and Anticipated Discharge Date Admission Date: November 25, 2024 Subjective No overnight events, went to the OR for possible closure. Reports doing okay would like to eat and drink and looking for update regarding additional plans for postprocedural recovery. Physical Exam Physical Exam: General: Alert. nontoxic. Skin: Warm, dry, Head: Atraumatic Ears, nose, mouth and throat: airway patent Cardiovascular: Normal peripheral perfusion Respiratory: no respiratory distress Gastrointestinal: Non distended Musculoskeletal: No deformity Results & Data Results & Data Vital Signs (Past 12 Hours) Vital Signs Temp Pulse Pulse Resp BP BP Pulse Ox 11/27/24 07:39 81 17 95 11/27/24 07:32 155/84 H 11/27/24 07:18 71 96 11/27/24 07:18 137/78 11/27/24 07:03 70 14 95 11/27/24 07:00 146/74 H 11/27/24 06:00 72 23 131/61 96 11/27/24 05:01 66 12 132/68 95 11/27/24 04:00 36.9 C 68 14 109/71 95 11/27/24 03:00 65 14 129/63 93 11/27/24 02:00 67 12 135/67 94 11/27/24 01:00 71 13 137/70 94 11/27/24 00:00 36.6 C 75 15 141/72 H 94 11/27/24 00:00 81 11/26/24 23:00 77 15 134/73 91 11/26/24 22:00 82 13 153/81 H 95 11/26/24 21:01 88 16 162/76 H 96 O2 Del Method 11/27/24 07:39 Room Air 11/27/24 07:32 11/27/24 07:18 11/27/24 07:18 11/27/24 07:03 Room Air 11/27/24 07:00 11/27/24 06:00 Room Air 11/27/24 05:01 Room Air 11/27/24 04:00 Room Air 11/27/24 03:00 Room Air 11/27/24 02:00 Room Air 11/27/24 01:00 Room Air 11/27/24 00:00 Room Air 11/27/24 00:00 11/26/24 23:00 Room Air 11/26/24 22:00 Room Air 11/26/24 21:01 Room Air Critical Care Results & Data Vital Signs (Past 12 Hours) Vital Signs Temp Pulse Pulse Resp BP BP Pulse Ox 11/27/24 07:39 81 17 95 11/27/24 07:32 155/84 H 11/27/24 07:18 71 96 11/27/24 07:18 137/78 11/27/24 07:03 70 14 95 11/27/24 07:00 146/74 H 11/27/24 06:00 72 23 131/61 96 11/27/24 05:01 66 12 132/68 95 11/27/24 04:00 36.9 C 68 14 109/71 95 11/27/24 03:00 65 14 129/63 93 11/27/24 02:00 67 12 135/67 94 11/27/24 01:00 71 13 137/70 94 11/27/24 00:00 36.6 C 75 15 141/72 H 94 11/27/24 00:00 81 11/26/24 23:00 77 15 134/73 91 11/26/24 22:00 82 13 153/81 H 95 11/26/24 21:01 88 16 162/76 H 96 O2 Del Method 11/27/24 07:39 Room Air 11/27/24 07:32 11/27/24 07:18 11/27/24 07:18 11/27/24 07:03 Room Air 11/27/24 07:00 11/27/24 06:00 Room Air 11/27/24 05:01 Room Air 11/27/24 04:00 Room Air 11/27/24 03:00 Room Air 11/27/24 02:00 Room Air 11/27/24 01:00 Room Air 11/27/24 00:00 Room Air 11/27/24 00:00 11/26/24 23:00 Room Air 11/26/24 22:00 Room Air 11/26/24 21:01 Room Air Lab & Micro Results (Past 24 Hours) RBC 4.08 M/uL (4.70-6.10) L 11/27/24 WBC 6.05 K/ul (4.8-10.8) 11/27/24 Hgb 13.3 g/dl (14.0-18.0) L 11/27/24 Hct 39.0 % (42.0-52.0) L 11/27/24 MCV 95.6 fL (80.0-100.0) 11/27/24 MCH 32.6 pg (25.0-34.0) 11/27/24 MCHC 34.1 g/dL (32.0-36.0) 11/27/24 RDW Standard Deviation 42.7 fL (36.4-46.3) 11/27/24 RDW Coefficient of Variation 12.3 % (11.5-14.5) 11/27/24 Plt Count 105 K/uL (130-400) L 11/27/24 MPV 9.5 fL (9.4-12.4) 11/27/24 Neutrophils (%) (Auto) 63.9 % 11/27/24 Lymphocytes (%) (Auto) 18.8 % 11/27/24 Monocytes # (Auto) 0.88 K/uL (0.11-0.59) H 11/27/24 Eosinophils # (Auto) 0.14 K/uL (0.00-0.50) 11/27/24 Immature Granulocyte % (Auto) 0.2 % 11/27/24 Neutrophils # (Auto) 3.86 K/uL (1.40-6.50) 11/27/24 Lymphocytes # (Auto) 1.14 K/uL (1.20-3.40) L 11/27/24 Monocytes # (Auto) 0.88 K/uL (0.11-0.59) H 11/27/24 Eosinophils # (Auto) 0.14 K/uL (0.00-0.50) 11/27/24 Basophils # (Auto) 0.02 K/uL (0.00-0.20) 11/27/24 Immature Granulocyte # (Auto) 0.01 K/uL (0.01-0.20) 5 Na 139 mmol/L (136-145) 11/27/24 K 4.1 mmol/L (3.5-5.1) 11/27/24 Cl 105 mmol/L (98-107) 11/27/24 CO2 31 mmol/L (21-32) 11/27/24 Anion Gap 3 (3-11) 11/27/24 BUN 14 mg/dl (6-23) 11/27/24 Creatinine 0.65 mg/dl (0.6-1.4) 11/27/24 BUN/Creatinine Ratio 21.5 (10-20) H 11/27/24 Glu 98 mg/dl (70-99(Fasting)) 11/27/24 Ca 8.8 mg/dl (8.6-10.3) 11/27/24 Mg 2.0 mg/dl (1.7-2.4) 11/27/24 04:13 Calcium Level 8.8 mg/dl (8.6-10.3) 11/27/24 04:13 I & O Totals 24 Hours 11/26/24 11/27/24 11/28/24 06:59 06:59 06:59 Intake Total 940 / 940 904.167 / 904.167 Output Total 1375 / 1375 3600 / 3600 Balance -435 / -435 -2695.833 / -2695.833 Cumulative 11/18/24 10:29 thru 11/27/24 07:37 Intake Total 1844.167 Output Total 4975 Balance -3130.833 RT Ventilator Mngmt (Last Documented) Ventilator Ordered Settings Respiratory Rate 17 11/27/24 07:39 Ventilator - PT Measurements Respiratory Rate 17 Coding Level of Care Code 30525 SUB INP/OBS CARE 09/10MIN Diagnoses Compartment syndrome of left lower extremity T79.A22A PAD (peripheral artery disease) I73.9
[2024-11-27] MEDS: ASPIRIN 81 MG ECTAB PO SCH (08:19)
[2024-11-27] MEDS: ceFAZolin 2000MG 2,000 MG/15 ML SYR IV ONE (08:25)
[2024-11-27] MEDS ORDERED: PHENYLEPHRINE 100MCG/ML 5ML SYR ONE (08:54)
[2024-11-27] MEDS ORDERED: ePHEDrine sulfate 50 MG/5 ML SYR ONE (08:54)
[2024-11-27] MEDS: VANCOMYCIN HCL 1000MG/20ML VIAL ONE (09:30)
--- NOTE | 2024-11-27 10:32 | Post Operative Brief Note ---
Immediate Post Op Note Date of Surgery November 27, 2024 Pre & Post Diagnosis Operation Date: 11/27/24 07:30 <No data on this case meets the specified criteria> Preop diagnosis: 1. Status post 4 compartment fasciotomy left lower extremity with application wound VAC 2. Compartment syndrome left lower extremity Postop diagnosis: Same I identified the patient and participated in the time-out.: Yes Procedure Operation Date: 11/27/24 07:30 <No data on this case meets the specified criteria> 1. Irrigation and debridement left lower extremity fasciotomy wound 2. Complex wound closure, left lower extremity wound measuring 16 cm in length 3. Application negative pressure wound care therapy Surgeon Gregorio Vo DO Coroner Technician Marci De La Torre PA-C Estimated Blood Loss 75 Findings See Below Minimal necrotic muscle tissue noted in the anterior compartment only approximately 5% of entire muscle bulk. No necrotic muscle noted in the lateral compartment. Healthy muscle appearing in the posterior compartments. Anesthesia Type General Complications None immediately noted Disposition Disposition: Surgical ICU Overlapping Procedure I was present for: the critical portions of procedure. (The entire case)
--- NOTE | 2024-11-27 11:40 | Anesthesiology Progress Note ---
Date of Service November 27, 2024 Anesthesia Post Procedure Vital Signs Vital Signs: Temp Pulse Pulse Resp BP BP Pulse Ox 11/27/24 11:12 36.7 C 11/27/24 11:10 74 12 114/60 94 11/27/24 11:05 112/59 L 11/27/24 11:05 73 12 112/59 L 99 11/27/24 11:00 116/57 L 11/27/24 10:55 113/59 L 11/27/24 10:54 78 14 99 11/27/24 10:51 79 11 L 98 11/27/24 10:50 115/55 L 11/27/24 10:45 102/67 11/27/24 10:40 109/54 L 11/27/24 10:40 109/54 L 11/27/24 10:37 114/56 L 11/27/24 10:33 78 15 99 11/27/24 10:32 112/58 L 11/27/24 10:30 37 C 11/27/24 08:00 67 11/27/24 07:39 81 17 95 11/27/24 07:32 155/84 H 11/27/24 07:18 71 96 11/27/24 07:18 137/78 11/27/24 07:03 70 14 95 11/27/24 07:00 146/74 H 11/27/24 06:00 72 23 131/61 96 11/27/24 05:01 66 12 132/68 95 11/27/24 04:00 36.9 C 68 14 109/71 95 11/27/24 03:00 65 14 129/63 93 11/27/24 02:00 67 12 135/67 94 11/27/24 01:00 71 13 137/70 94 11/27/24 00:00 36.6 C 75 15 141/72 H 94 11/27/24 00:00 81 11/26/24 23:00 77 15 134/73 91 11/26/24 22:00 82 13 153/81 H 95 11/26/24 21:01 88 16 162/76 H 96 11/26/24 20:16 139/76 11/26/24 20:00 11/26/24 20:00 37.1 C 87 20 94 11/26/24 19:00 85 18 146/76 H 94 11/26/24 19:00 83 11/26/24 18:03 89 12 11/26/24 18:00 141/77 H 11/26/24 17:51 82 95 11/26/24 17:03 88 14 92 11/26/24 17:00 172/77 H 11/26/24 16:48 82 16 96 11/26/24 16:09 82 17 97 11/26/24 16:00 155/86 H 11/26/24 16:00 87 11/26/24 15:57 75 18 97 11/26/24 15:33 66 14 95 11/26/24 15:00 144/69 H 11/26/24 14:48 68 26 H 96 11/26/24 14:03 64 15 94 11/26/24 14:00 126/71 11/26/24 13:48 63 14 96 11/26/24 13:33 65 13 97 11/26/24 13:00 131/61 11/26/24 12:54 64 97 11/26/24 12:52 163/80 H 11/26/24 12:51 69 92 11/26/24 12:06 63 14 97 O2 Del Method O2 Flow Rate 11/27/24 11:12 11/27/24 11:10 Room Air 11/27/24 11:05 11/27/24 11:05 Oxymask 4 11/27/24 11:00 11/27/24 10:55 11/27/24 10:54 Oxymask 4 11/27/24 10:51 Oxymask 6 11/27/24 10:50 11/27/24 10:45 11/27/24 10:40 11/27/24 10:40 11/27/24 10:37 11/27/24 10:33 Oxymask 6 11/27/24 10:32 11/27/24 10:30 11/27/24 08:00 11/27/24 07:39 Room Air 11/27/24 07:32 11/27/24 07:18 11/27/24 07:18 11/27/24 07:03 Room Air 11/27/24 07:00 11/27/24 06:00 Room Air 11/27/24 05:01 Room Air 11/27/24 04:00 Room Air 11/27/24 03:00 Room Air 11/27/24 02:00 Room Air 11/27/24 01:00 Room Air 11/27/24 00:00 Room Air 11/27/24 00:00 11/26/24 23:00 Room Air 11/26/24 22:00 Room Air 11/26/24 21:01 Room Air 11/26/24 20:16 11/26/24 20:00 Room Air 11/26/24 20:00 Room Air 11/26/24 19:00 Room Air 11/26/24 19:00 11/26/24 18:03 11/26/24 18:00 11/26/24 17:51 11/26/24 17:03 11/26/24 17:00 11/26/24 16:48 11/26/24 16:09 11/26/24 16:00 11/26/24 16:00 11/26/24 15:57 11/26/24 15:33 11/26/24 15:00 11/26/24 14:48 11/26/24 14:03 11/26/24 14:00 11/26/24 13:48 11/26/24 13:33 11/26/24 13:00 11/26/24 12:54 11/26/24 12:52 11/26/24 12:51 11/26/24 12:06 Pain Intensity Left Leg: Pain Intensity: 4 Transfer of Care Handoff Completed per policy Notes Mental Status: alert / awake / arousable Patient Amnestic to Procedure: Yes Nausea / Vomiting: adequately controlled Pain: adequately controlled Airway Patency, RR, SpO2: stable & adequate BP & HR: stable & adequate Hydration State: stable & adequate Anesthetic Complications: no major complications apparent
--- NOTE | 2024-11-27 14:15 | Operative Report ---
Post Operative Report Pre & Post Diagnosis Operation Date: 11/27/24 07:30 Pre-Op Diagnosis: Compartment syndrome of left lower extremity Post-Op Diagnosis: Compartment syndrome of left lower extremity I identified the patient and participated in the time-out.: Yes Procedure Operation Date: 11/27/24 07:30 Actual Procedures p Irrigation & Debridement Left Lower Extremity, Complex Wound Closure Left Lower Extremity 16cm , Application Negative Pressure Wound Therapy(Left) - Gregorio Vo DO 1. Irrigation and agreement left lower extremity 4 compartment fasciotomy wound 2. Complex wound closure left lower extremity fasciotomy wound measuring 16 cm 3. Application negative pressure wound therapy Surgeon Gregorio Vo DO [place] Marci De La Torre PA-C Estimated Blood Loss 75 Findings See Below Viable muscles in the deep posterior, superficial posterior, lateral compartments. In the anterior compartment approximately 5% of the muscle appeared nonviable and was debrided. Excellent wound edge approximation from previous wound VAC placement with the ability to close the wound today. Specimens None Anesthesia Type General Complications None immediately apparent Disposition Disposition: Surgical ICU Indications Ajit is an 84-year-old gentleman who initially developed compartment syndrome on 11/25/2024 after attempted angioplasty of his left lower extremity for chronic nonhealing lower extremity wounds. He proceeded to the operating room emergently that evening for 4 compartment fasciotomy through a single lateral incision. At that time, a wound VAC was placed with plans to return to the operating room today for irrigation and debridement of nonviable tissue with application of wound VAC versus potential closure. I discussed with the patient and his the risks of the surgery including but not limited to loss of life/limb, infection, wound healing complications, DVT, need for additional surgery, need for future skin grafting. They understood these risks and wished to proceed. Description of Procedure After informed consent was obtained, the patient was correctly identified in the preoperative holding suite, the operative site was marked with the surgeon's initials, the date of surgery, and the word yes. The patient was then taken to the operative suite. The department of anesthesia administered general anesthesia. The patient was [facility] the operative table. All bony prominences were well-padded. Briefing and timeout was performed. All implants were available and sterile at the time. BRIEFING AND DEBRIEFING: Pre and post operative briefing and debriefing was performed. Introductions were made, goals of the procedure were discussed, questions and concerns were addressed. The operative site markings were identified and appropriate. A time [id number] was performed, the patient's correct identity was confirmed and the correct o perative sites were identified. The patients pre-operative antibiotic dosing and administration was confirmed along with other SCIP measures. The team was polled at the completion of the surgery and all team members were in agreement that the procedure was without complication, the counts are correct, the wound class was identified and suggestions for improvement were shared. Patient was transferred in supine fashion from his hospital bed to the operative table. His bilateral upper extremities were well-padded and placed on arm boards. A bump was placed under his left hip and his right lower extremity was well-padded and an SCD was placed on this. Patient's left lower extremity was then placed on a bone foam ramp and a well-padded tourniquet was placed high on his left thigh. This would not be inflated during the case. We removed the patient's wound VAC and examined his wound and skin. We then prewashed his leg with ChloraPrep scrub brushes followed by prepping and draping in standard sterile orthopedic fashion using Betadine scrub and paint. At this point, we examined the patient's wound in its entirety. With regards to the patient's musculature compartments, muscles in the deep posterior, superficial posterior, and lateral muscle compartments were all beefy and red in color, easily contractile, and had an appropriate consistency. With regards to the anterior compartment which was the compartment that we are most concerned about last time, most of the muscle had done very well over the course of the last 2 days and only about 5% of the tibialis anterior muscle belly needed to be excised because it appeared nonviable. We did this sharply using a knife down to the level of bone. This was done through the patient's lateral fasciotomy incision which measured 16 cm in length. Once we were satisfied with our sharp debridement of all nonviable tissues, we began by thorough irrigation of the wound. We irrigated thoroughly with 6 L of sterile saline mixed with 1 g of vancomycin powder that each 3 L bag. We did this through cystoscopy tubing. While doing this we bluntly debrided any nonviable tissue using Ray-Fritz's down to the level of the muscles. At this point, we evaluated the patient's wound and its ability to be closed. As we had placed a wound VAC on previously, this had shrunk tissues very well and the patient swelling had abated significantly, that we thought the closure was possible. We would do our closure in a systematic fashion using 3-0 nylon sutures placed in vertical mattress fashion each suture by 1 quart of an inch. We would throw all sutures and clipped them with hemostats prior to tensioning all sutures at the same time so as to distribute forces evenly. After we had done this, the wound edges were very well-approximated and we proceeded to tie each 1 sequentially. Next, we placed quarter inch round Steri- Strips between each suture, cover the wound with Betadine soaked Adaptic, and covered this with a negative pressure katarzyna dressing for wound care. We then dressed the patient's anterior ankle wound that had been present previously with Betadine soaked Adaptic, 4 x 4. We then wrapped the entire low er extremity and Webril and placed an Richard wrap for gentle compression. The patient tolerated this procedure well and was transferred to the PACU in stable condition. Prior to transportation to PACU, all counts were correct and a briefing was performed at the end of the case. Due to the complex nature of the procedure, the entire surgery was performed with the operational assistance of Marci De La Torre PA-C. The insurance legal assistant, under direct supervision, was involved in the performance of all aspects of the surgical procedure including hemostasis, tissue retraction, instrument management, patient positioning and wound closure. I was present for the entire procedure. Plan: Weight bearing status: Nonweightbearing left lower extremity Wound care: Keep dressings clean and dry. Katarzyna will last for 7 days and this will be changed once the batteries run out. This will be done in the office at the end of this week. The patient will be scheduled to follow-up with me on 12/02/2024 Range of motion: As tolerated of knee VTE Prophylaxis: Okay from orthopedic standpoint Antibiotics: 24 hours of Ancef Pain Control: Multimodal Discharge Plan: Pending clinical course Follow Up: Patient will follow-up with me on 12/02/2024 for wound check and dressing change. I attest to the content of the Intraoperative Record and any orders documented therein. Any exceptions are noted below.
--- NOTE | 2024-11-27 21:37 | Vascular Medicine ProgressNote ---
Date of Service November 27, 2024 Assessment & Plan (1) Compartment syndrome of left lower extremity: Plan: Post fasciotomy 11/25 --Post Irrigation and wound closure 11/27 2. Left anterior tibial artery perforation post coil embolization 3. Lower extremity PAD Post stenting of left TPT/PT with CHAR, angioplasty of peroneal 11/25. BLANKA chronically occluded -- 02/2024 LLE popliteal [id number]% restenosis (no pullback gradient) 4. Nonhealing left leg anterior hernandez wound 5. Thrombocytopenia -- stable 6. Lumbar spinal stenosisradiculopathy post back surgery x 2 7. Dyslipidemia 8. PVCsasymptomatic Doing well post-irrigation and wound closure this morning. Pain reasonably controlled. Distal left lower extremity appears well-perfused. Stable distal sensation and motor function. Will transfer out of ICU today. -- Resume aspirin today. -- Possible clopidogrel tomorrow if OK from surgical standpoint. -- Will discontinue metoprolol -- Start DVT prophylaxis -- Patient interested in skilled nursing management of chronic leg wound - will co nfirm plan with Wound care. Appreciate Dr. Gilda connolly. Admission and Anticipated Discharge Date Admission Date: November 25, 2024 Subjective Seen this afternoon. Report minimal pain post surgery this morning. No other new concerns. Tele reviewed - sinus, occasional PVCs, couplets. Review of Systems Review of Systems: All systems reviewed & are unremarkable except as noted in HPI & below Physical Exam Physical Exam: General: Comfortable HEENT: Sclerae anicteric Lungs: Clear to auscultation bilaterally Cardiac: Regular rate and rhythm, no murmurs. Vascular: 2+ radial. Left GARAGE DOOR HANGER dressing in place. Minimal ecchymosis. No hematoma. 2+ left GARAGE DOOR HANGER pulse. Borderline capillary refill bilaterally. Left foot warm. Sensation light touch reduced over medial aspect of foot/13 digits (chronic). Limited flexion extension of toes on the left (chronic) Abdomen: Soft, nontender Extremities: Left leg with Richard bandage extending from foot to above-knee with JENNI dressings in place Psych: Alert orient x3, normal affect and mood Results & Data Vital Signs (Past 12 Hours) Vital Signs Temp Pulse Pulse Resp BP BP Pulse Ox 11/27/24 18:15 98.2 F 78 18 123/60 96 11/27/24 14:24 66 12 127/61 11/27/24 12:30 71 105/52 L 95 11/27/24 12:00 115/54 L 11/27/24 11:51 71 11 L 95 11/27/24 11:48 75 14 95 11/27/24 11:45 112/55 L 11/27/24 11:30 116/53 L 11/27/24 11:25 112/54 L 11/27/24 11:21 73 16 93 11/27/24 11:20 113/51 L 11/27/24 11:15 119/52 L 11/27/24 11:12 98.1 F 11/27/24 11:10 74 12 114/60 94 11/27/24 11:05 112/59 L 11/27/24 11:05 73 12 112/59 L 99 11/27/24 11:00 116/57 L 11/27/24 10:55 113/59 L 11/27/24 10:54 78 14 99 11/27/24 10:51 79 11 L 98 11/27/24 10:50 115/55 L 11/27/24 10:45 102/67 11/27/24 10:40 109/54 L 11/27/24 10:40 109/54 L 11/27/24 10:37 114/56 L 11/27/24 10:33 78 15 99 11/27/24 10:32 112/58 L 11/27/24 10:30 98.6 F O2 Del Method O2 Flow Rate 11/27/24 18:15 Room Air 11/27/24 14:24 Room Air 11/27/24 12:30 Room Air 11/27/24 12:00 11/27/24 11:51 11/27/24 11:48 11/27/24 11:45 11/27/24 11:30 11/27/24 11:25 11/27/24 11:21 Room Air 11/27/24 11:20 11/27/24 11:15 11/27/24 11:12 11/27/24 11:10 Room Air 11/27/24 11:05 11/27/24 11:05 Oxymask 4 11/27/24 11:00 11/27/24 10:55 11/27/24 10:54 Oxymask 4 11/27/24 10:51 Oxymask 6 11/27/24 10:50 11/27/24 10:45 11/27/24 10:40 11/27/24 10:40 11/27/24 10:37 11/27/24 10:33 Oxymask 6 11/27/24 10:32 11/27/24 10:30 PG Care Time/CCT Total # of Minutes Spent Total Time Spent with Patient: Total time spent is greater than 50% in coordination of care (as documented) at patient's floor/unit and/or counseling patient: Coding Level of Care Code 97160 SUB INP/OBS CARE 2/35MIN Diagnoses Compartment syndrome of left lower extremity T79.A22A
[2024-11-28 03:23] VITALS: TEMP 98.2
[2024-11-28 07:15] VITALS: RESP 16
--- NOTE | 2024-11-28 07:29 | Orthopedic Progress Note ---
Date of Service November 28, 2024 Assessment & Plan (1) Compartment syndrome of left lower extremity: (2) PAD (peripheral artery disease): (3) Open wounds involving multiple regions of lower extremity: (4) CAD (coronary artery disease): Plan 84-year-old gentleman doing well postoperative day #3 status post fasciotomy of the left lower extremity with application of wound VAC and postoperative day #1 status post irrigation and debridement of wound with closure. Patient doing well this morning and at this time is orthopedically stable. I will plan to see him in the office at the end of this week on Thursday for wound evaluation. He should keep his latha on until that time. I would recommend limiting his weightbearing so as to protect the incision while it is healing. I did explain to him that he will likely have his sutures in for about 3 weeks. He should work with PT/OT today to determine a safe discharge plan to ensure that he is able to maintain limited weightbearing on his left lower extremity. Okay for DVT ppx from ortho standpoint. Admission and Anticipated Discharge Date Admission Date: November 25, 2024 Subjective Anthony domingo postoperative day #1 status post irrigation debridement and closure of fasciotomy wound and postoperative day #3 status post 4 compartment fasciotomy. Patient doing well this morning. Notes no significant pain in the lower extremity. Denies any new numbness or tingling. Review of Systems Review of Systems: All systems reviewed & are unremarkable except as noted in HPI & below Physical Exam Physical Exam: latha functioning appropriately. sensation at baseline in lower extremity Results & Data Vital Signs (Past 12 Hours) Vital Signs Temp Pulse Resp BP BP Pulse Ox O2 Del Method 11/28/24 07:13 36.8 C 64 16 143/58 H 94 Room Air 11/28/24 03:19 36.8 C 67 18 126/59 L 95 Room Air 11/27/24 23:19 36.7 C 72 16 121/64 96 Room Air
[2024-11-28] MEDS ORDERED: ENOXAPARIN INJ 40 MG/0.4 ML SYR SQ SCH (08:00)
[2024-11-28] MEDS: CLOPIDOGREL BISULFATE 75 MG TAB PO SCH (09:41)
[2024-11-28 09:43] LABS: Basophils # (auto) 0.02 K/uL (0.00-0.20); Basophils % (auto) 0.3 %; Eosinophils # (auto) 0.12 K/uL (0.00-0.50); Eosinophils % (auto) 2.1 %; Hematocrit (blood only) 36.2 % (42.0-52.0); Hemoglobin 12.5 g/dl (14.0-18.0); Immature Granulocytes # (auto) 0.01 K/uL (0.01-0.20); Immature Granulocytes % (auto) 0.2 %; Lymphocytes # (auto) 1.02 K/uL (1.20-3.40); Lymphocytes % (auto) 17.5 %; Mean Corpuscular Hemoglobin 33.2 pg (25.0-34.0); Mean Corpuscular Hgb Conc 34.5 g/dL (32.0-36.0); Mean Corpuscular Volume 96.3 fL (80.0-100.0); Mean Platelet Volume 10.2 fL (9.4-12.4); Monocytes % (auto) 10.3 %; Neutrophils # (auto) 4.05 K/uL (1.40-6.50); Neutrophils % (auto) 69.6 %; Platelet Count 105 K/uL (130-400); RDW Coefficient of Variation 12.2 % (11.5-14.5); Red Blood Count 3.76 M/uL (4.70-6.10); White Blood Count 5.82 K/ul (4.8-10.8)
[2024-11-28 09:55] LABS: BUN Creatinine Ratio 18.5 (10-20); Calcium 8.7 mg/dl (8.6-10.3); Creatinine Clr Calc Pharmacy 80.3 ml/min; Potassium 4.2 mmol/L (3.5-5.1)
[2024-11-28 11:39] VITALS: O2SAT 95
[2024-11-28 15:40] VITALS: BP 121/64; PULSE 78
--- NOTE | 2024-11-28 23:06 | Discharge Summary ---
Date of Service November 28, 2024 Admission HPI Per Admitting Provider Mr. Valdez is a very pleasant 84-year-old man who presented on 11/25/2024 for left lower extremity angiogram and intervention in the setting of known below the knee PAD and nonhealing left lower anterior hernandez wound. Past medical history includes dyslipidemia, coronary artery calcifications on CT scan (stress echo negative 03/2022), GERD, BPH. Also with a history of lumbar stenosis post prior back surgeries in 2015, 2019 most recently at [facility]. Previously seen by vascular medicine 02/2024 in the setting of longstanding claudication. Underwent endovascular invention 03/14/2024 with IVL and NOREEN to left popliteal as well as IVL to LT TPT/INTERVENTION SPECIALIST. Recent arterial duplex 09/2024right YESSY 0.72, TBI 0.5 to; left YESSY 0.6, TBI 0.44 (56). Duplex showed occluded left BLANKA and patent popliteal/INTERVENTION SPECIALIST arteries. Patient has seen wound clinic since 09/20/2024 with 6 weeks of left lower leg/ankle ulcers without preceding trauma. Left lateral ankle has essentially healed. Ulcer over left lower medial hernandez healing plateaued despite standard wound care, antibiotics. More recently had developed pain around wound site particularly at night. Discharge Data Consultations 11/25/24 22:22 Consult Paste Thinner Routine Procedures Performed Operation Date: 11/27/24 07:30 Actual Procedures p Irrigation & Debridement Left Lower Extremity, Complex Wound Closure Left Lower Extremity 16cm , Application Negative Pressure Wound Therapy(Left) - Gregorio Vo DO Hospital Course (1) Compartment syndrome of left lower extremity: Post fasciotomy 11/25 --Post Irrigation and wound closure 11/27 2. Left anterior tibial artery perforation post coil embolization 3. Lower extremity PAD Post stenting of left TPT/PT with CHAR, angioplasty of peroneal 11/25. BLANKA chronically occluded -- 02/2024 LLE popliteal [id number]% restenosis (no pullback gradient) 4. Nonhealing left leg anterior hernandez wound 5. Thrombocytopenia -- stable 6. Lumbar spinal stenosisradiculopathy post back surgery x 2 7. Dyslipidemia 8. PVCsasymptomatic On 11/25/2024 patient underwent angiography of his left lower extremity via left RUBBER TIRE CURER antegrade access. He was found to have LT 50% popliteal in-stent restenosis and 90+% TPT, proximal INTERVENTION SPECIALIST recurrent disease. Proximal peroneal was again shown to be occluded with distal reconstitution. Distal peroneal appears to give off collaterals to chronic wound bed. Earlymid BLANKA again noted to be occluded without significant reconstitution. He underwent angioplasty and stenting of left TPT and INTERVENTION SPECIALIST with 2 drug-eluting stents (3.0 x 33, 2.75 x 33 Xience) as well as angioplasty with intravascular lithotripsy to left peroneal occlusion. While in holding area developed worsening pain over his left upper anterolateral hernandez. On repeat exam anterior hernandez was noted to be hard/tender with increased pain with passive flexion of the foot/toes. Findings were concerning for anterior compartment syndrome. Orthopedics was contacted, Dr. Vo and patient was taken back to [facility] for repeat angiography where was noted to have a dissection and apparent perforation in his mid left BLANKA proximal to chronic occlusion. Dissection/perforation was treated with prolonged angioplasty and eventual coiling of earlymid BLANKA (6 mm and 4 mm 0.35 Paola Cook) with no further evidence of extravasation. Dr. Vo confirmed elevated compartment pressures with Flomot needle (anterior 94, lateral 90) and took patient urgently to the OR where he performed 4 compartment fasciotomy of left lower extremity and placed wound VAC. Per initial appearance there was some concern regarding muscle viability in the anterior compartment. Post fasciotomy he was monitored in the ICU with wound VAC in place, on antibiotics. On hospital day 3 returned to OR for irrigation. Majority of muscle appeared viable (non-viable requiring debridement <5% tibialis anterior) and was able to undergo successful complex wound closure of left leg fasciotomy wound (16 cm) with latha dressing placed. On hospital day 4 patient feeling well. Pain well-controlled. Hemoglobin/platelets/creatinine stable. No apparent RUBBER TIRE CURER access site complications. Left distal extremity appears well-perfused. He was seen by Dr. Vo who okayed patient for discharge and recommended he keep his dressing in place until follow-up with him later this week. Also recommended limited weightbearing and patient discharged to home after seen by PT with plan to use rolling walker, wheelchair. From a vascular standpoint he was restarted on clopidogrel along with aspirin. Will follow-up with repeat arterial duplex next week. Wound care follow-up for his chronic hernandez wound next week as well. Discharge Instructions Home Medications aspirin 81 mg tablet,delayed release (Adult Aspirin Regimen) 81 mg PO QAM 03/17/19 [History Confirmed 11/25/24] cholecalciferol (vitamin D3) 50 mcg (2,000 unit) capsule 2,000 units PO QAM 03/17/19 [History Confirmed 11/25/24] coenzyme Q10 100 mg capsule 100 mg PO QAM 03/18/19 [History Confirmed 11/25/24] glucosamine-chondroitin 250 mg-200 mg tablet (Osteo Bi-Flex) 2 tab PO QAM 03/18/19 [History Confirmed 11/25/24] omega-3 fatty acids 1,000 mg capsule (Fish Oil Concentrate) 1,000 mg PO TID 03/18/19 [History Confirmed 11/25/24] multivitamin 1 tab PO QAM 07/11/20 [History Confirmed 11/25/24] vitamin B complex (B Complex-Vitamin B12 tablet) 1 tab PO QAM 07/11/20 [History Confirmed 11/25/24] Cholest Md 2 tab PO QPM 04/29/23 [History Confirmed 11/25/24] finasteride 5 mg tablet 5 mg PO QPM #90 tabs 12/31/23 [Rx Confirmed 11/25/24] atorvastatin 40 mg tablet (Lipitor) 40 mg PO QPM #90 tabs 04/21/24 [Rx Confirmed 11/25/24] niacin 1 tab PO .3 times weekly 08/22/24 [History Confirmed 11/25/24] acetaminophen 500 mg tablet (Tylenol Extra Strength) 1,000 mg PO BID 09/20/24 [History Confirmed 11/25/24] aspirin 81 mg tablet,delayed release 81 mg PO QAM #90 tabs 11/28/24 [Rx] clopidogrel 75 mg tablet 75 mg PO QAM #30 tabs 11/28/24 [Rx] oxycodone 5 mg tablet 5 mg PO Q4H PRN pain #20 tabs 11/28/24 [Rx] Coding Level of Care Code 92441 INP/OBS DISCH >30 MIN Diagnoses Compartment syndrome of left lower extremity T79.A22A
== END 2024-11-28 16:30 | disposition home or self-care (01) | DRG 908 ==
LOC: CC 08:49 → 1E 16:39 → 3W 11-27 18:26
PROC: CLB.AEU (2024-11-25 10:00)